=== PATIENT | female | born 1935 | race Caucasian/White ===

== ENCOUNTER 2020-01-04 12:47 | Inpatient (IN) | payer OTHER, MEDICARE ==
[~2020-01-04] VITALS: Ht 160 cm; Wt 86.6 kg
--- NOTE | ~2020-01-04 | EMS ---
[place] [address] EMS Patient Care Report Name: DERREK EDUARDO Room #: PRE M.R.#: [id number] Admission: Attend Phys: Discharge: Date of : 37 Report #: [id number] THIS REPORT FOR: //name// Report Transmitted: 01/04/2020 12:31 EMS Care Summary [place], [place]/[facility] Incident [id number] @ 01/04/2020 12:02 Incident Location [facility] 20 Patient DERREK EDUARDO Female, 84 Years 1935 Patient Address [address] [place] [address] 20 [place] [address] Patient History Diabetes,Hypertension (HTN),Neuropathy,Glaucoma, Patient Allergies Sulfa, Patient Medications Lasix, Gabapentin, Aldactone, Humalog, Hydrochlorothiazide (Hctz), Timolol, Doxycycline, Amlodipine, Lantus, Chief Complaint Blisters/ulcers of lower legs Disposition Transported No Lights/[place] Dispatch Reason Sick Person Transported To [facility] Narrative Arrived to find the patient seated in a wheelchair in her room of the [facility] gcs15. Patient needed transport to a hospital [place] [address] EMS Patient Care Report Name: DERREK EDUARDO Room #: [facility] Reed.#: [id number] Admission: Attend Phys: Discharge: Date of : 37 Report #: [id number] wounds to the calf area. Patient developed blisters approximately a week prior after physical therapy with ankle weights. Blisters developed in the location of the weights, the blisters popped and developed what was described as a black area. Patient had a history of HTN and stated her BP was higher than normal for her. Patient said she takes her medications as prescribed. Patient denied any pain or discomfort in her lower legs. Patient denied any chest pain, n/v, or SOA. Patient stated she had bumped her right arm between her bed and wheelchair when the SNF moved her earlier that morning. Patient was AO4, patient was lifted from the wheelchair to the cot. No DCAPBTLS noted on right arm. Patient was transported and transferred to receiving facility without incident. Initial Vitals @12:31P: 98,R: 16,BP: 166/88,Pain: 0/10,GCS: 15,SpO2: 100,Revised Trauma: 12, @12:28P: 97,R: 16,BP: 168/60,Pain: 0/10,GCS: 15,CO: 0,SpO2: 99,Revised Trauma: 12, Assessments @12:16MENTAL:No Abnormalities,SKIN:No Abnormalities,HEENT:Head/Face: No Abnormalities,Eyes: No Abnormalities,Neck/Airway: No Abnormalities,LUNG SOUNDS:General: No Abnormalities,Left Upper: No Abnormalities,Right Upper: No Abnormalities,Left Lower: No Abnormalities,Right Lower: No Abnormalities,ABDOMEN:General: No Abnormalities,Left Upper: No Abnormalities,Right Upper: No Abnormalities,Left Lower: No Abnormalities,Right Lower: No Abnormalities,PELVIS//GI:No Abnormalities,EXTREMITIES:Left Leg: Other,Right Leg: Other,Left Arm: No Abnormalities,Right Arm: No Abnormalities,PULSE:Radial: 2+ Normal,NEURO:No Abnormalities, Impression Extremity Pain Procedures @12:31ALS AssessmentResponse: UnchangedSucceeded Timeline 12:00,Call Received 12:00,Dispatch Notified 12:02,Dispatched 12:03,En Route 12:10,On Scene 12:15,At Patient 12:28,BP: 168/60 M,PULSE: 97,RR: 16 R,SPO2: 99 Ox,ETCO2: ,BG: ,PAIN: 0,GCS: 15, 12:31,BP: 166/88 M,PULSE: 98,RR: 16 R,SPO2: 100 Ox,ETCO2: ,BG: ,PAIN: 0,GCS: 15, 12:31,ALS Assessment,Response: UnchangedSucceeded, 12:41,Depart Scene [address] [address] EMS Patient Care Report Name: DERREK EDUARDO Room #: PRE M.R.#: [id number] Admission: Attend Phys: Discharge: Date of : 37 Report #: [id number] 12:41,At Destination 13:13,Call Closed Disclaimer v1.1 Copyright 2020 [employer] This EMS Care Summary contains data elements from the applicable legal record (which may be displayed differently). It is designed to provide pertinent information for the following purposes: continuity of care, clinical quality, and state data reporting. The complete legal record is available to ED staff and administrators of the receiving hospital in [facility]'s Patient Tracker. All data is provided "as is."
[2020-01-04 12:51] VITALS: BP 170/70
[2020-01-04 13:25] LABS: BASOPHILS 0.9 % (0.0-2.0); EOSINOPHILS 1.5 % (0.0-3.0); HEMATOCRIT 38.3 % (37.0-47.0); HEMOGLOBIN 13.1 gm/dL (12.0-15.0); LYMPHOCYTES 17.4 % (24.0-44.0); MCH 31.5 pg (26.0-34.0); MCHC 34.1 g/dL (28.0-37.0); MCV 92.3 fL (80.0-100.0); MONOCYTES 9.1 % (1.0-8.0); PLATELET COUNT 424 thou/uL (150-400); POLYS 71.1 % (36.0-66.0); RBC 4.15 mil/uL (4.20-5.00); RDW 13.7 % (10.5-14.5); WBC 14.1 thou/uL (4.0-11.0)
[2020-01-04 13:53] LABS: CALCIUM 9.3 mg/dL (8.5-10.1); CREATININE 0.9 mg/dL (0.6-1.0)
[2020-01-04 14:17] VITALS: BP 170/70
[2020-01-04] MEDS ORDERED: NEURONTIN 300300 M1 PO (14:42)
[2020-01-04] MEDS ORDERED: VITAMIN C500 M2 PO (14:44)
[2020-01-04] MEDS ORDERED: NORVASC5 M1 PO (14:44)
[2020-01-04] MEDS ORDERED: ASA81BEC PO (14:44)
[2020-01-04] MEDS ORDERED: SUPER THERAVIT1 EACH PO (14:44)
[2020-01-04] MEDS ORDERED: HYDROCHLOROTH12.5 M1 PO (14:45)
[2020-01-04] MEDS ORDERED: LASIX 40 MG TAB40 MG PO (14:45)
[2020-01-04] MEDS ORDERED: LANTUS SOL100 UNIT/1 SUBQ (14:46)
[2020-01-04] MEDS ORDERED: DOXYCYCLINE 10100 M2 PO (14:46)
[2020-01-04] MEDS ORDERED: HUMALOG100 UNIT/2 SUBQ (14:47)
[2020-01-04 16:14] VITALS: BP 144/61
[2020-01-04 17:48] VITALS: BP 147/55
[2020-01-04 19:46] VITALS: BP 151/68
[2020-01-05 03:56] VITALS: BP 149/69
[2020-01-05 07:16] VITALS: BP 136/57
[2020-01-05 19:27] VITALS: BP 140/48
[2020-01-06] VITALS (11 sets, daily range): BP systolic 113–152; BP diastolic 44–89
[2020-01-07] VITALS (7 sets, daily range): BP systolic 123–148; BP diastolic 55–80
[2020-01-08] VITALS (7 sets, daily range): BP systolic 122–143; BP diastolic 53–66
[2020-01-08 03:43] LABS: HEMATOCRIT 32.9 % (37.0-47.0); HEMOGLOBIN 11.1 gm/dL (12.0-15.0); MCH 32.1 pg (26.0-34.0); MCHC 33.9 g/dL (28.0-37.0); MCV 94.6 fL (80.0-100.0); RBC 3.48 mil/uL (4.20-5.00)
[2020-01-08 03:49] LABS: CALCIUM 8.4 mg/dL (8.5-10.1); CREATININE 0.6 mg/dL (0.6-1.0); POTASSIUM 3.6 mmol/L (3.5-5.1)
[2020-01-09 05:04] VITALS: BP 163/70
[2020-01-09 07:30] VITALS: BP 144/62
[2020-01-09 07:36] VITALS: BP 101/44
[2020-01-09 20:46] VITALS: BP 152/66
[2020-01-09 21:00] VITALS: BP 123/60
[2020-01-10] VITALS (13 sets, daily range): BP systolic 118–162; BP diastolic 58–78
[2020-01-11] VITALS (8 sets, daily range): BP systolic 130–143; BP diastolic 51–74
[2020-01-11 05:48] LABS: HEMATOCRIT 33.5 % (37.0-47.0); HEMOGLOBIN 11.2 gm/dL (12.0-15.0); MCH 31.8 pg (26.0-34.0); MCHC 33.6 g/dL (28.0-37.0); MCV 94.7 fL (80.0-100.0); RBC 3.53 mil/uL (4.20-5.00); RDW 14.1 % (10.5-14.5); WBC 8.7 thou/uL (4.0-11.0)
[2020-01-11 06:11] LABS: CALCIUM 8.7 mg/dL (8.5-10.1); CREATININE 0.6 mg/dL (0.6-1.0); POTASSIUM 3.9 mmol/L (3.5-5.1)
--- NOTE | 2020-01-11 12:06 | HC ---
[facility] [place] [address] CONSULTATION Name: DERREK EDUARDO Room #: 203-P ADM IN M.R.#: [id number] Admission: 01/04/20 Attend Phys: Elliot Forde MD Discharge: Date of : 37 Report #: [id number] THIS REPORT FOR: cc: FAM - Family physician unknown FAM - Family physician unknown Tony Umanzor MD ~ CC: ERNESTO unknown Elliot Forde DATE OF SERVICE: 01/05/2020 CHIEF COMPLAINT: Bilateral lower extremity ulcerations. HISTORY OF PRESENT ILLNESS: This is an 84-year-old female patient admitted to the hospital from [facility]. She has had increased confusion and then has developed swelling and ulceration and blistering to her lower legs. She is complaining of pain in her posterior calf and left heel and I have been asked to see her with regard to wound care. PAST MEDICAL HISTORY: Prior history of MRSA cellulitis, previous pressure ulceration to the left buttock, history of urinary tract infection, hypertension, diabetes mellitus, colitis, glaucoma and hearing loss. SOCIAL HISTORY: She has a history of past alcohol use. Negative for tobacco or drug use. FAMILY HISTORY: Noncontributory. MEDICATIONS: Include Neurontin, Norvasc, aspirin, vitamin C, Lasix, Lantus and Humalog. ALLERGIES: SULFA. REVIEW OF SYSTEMS: CONSTITUTIONAL: The patient denies fever, chills or weight loss. NEUROLOGICAL: The patient denies focal weakness, numbness or tingling. EYES: The patient denies visual changes, redness, or drainage. ENT: The patient denies earache, nasal drainage, sore throat. CARDIOVASCULAR: The patient denies chest pain, palpitation or diaphoresis. PULMONARY: The patient denies cough or shortness of breath. GASTROINTESTINAL: The patient denies nausea, vomiting, diarrhea or abdominal pain. ORTHOPEDIC: The patient notes pain, swelling, drainage on both lower legs posteriorly and involving the left heel times at least 1-2 weeks. Other systems in a 14-point review of systems are negative. [address] [address] CONSULTATION Name: DERREK EDUARDO Room #: 203-P [facility] IN M.R.#: [id number] Admission: 01/04/20 Attend Phys: Elliot Forde MD Discharge: Date of : 37 Report #: [id number] PHYSICAL EXAMINATION: VITAL SIGNS: At this time include temperature 36.4, pulse 75, respiratory rate 18, blood pressure 147/55. GENERAL: This is a chronically ill-appearing female patient who appears to be in no obvious distress. HEENT: Head normocephalic. Nose and throat clear. NECK: Supple. LUNGS: Clear. ABDOMEN: Soft. Bowel sounds present. EXTREMITIES: Lower extremities demonstrate ulcerations with moist eschar on the posterior aspects of the right medial calf area as well as the left posterior calf and involving the left heel. There is odor and drainage. Distal pulses are not easily palpable however. LABORATORY STUDIES: Sodium 136, potassium 3.0, chloride 95, CO2 of 32, BUN 23, creatinine 0.9, glucose 250, white blood cell count 14.1, hemoglobin 13.1. CLINICAL IMPRESSION: 1. Unstable pressure ulcer of the right calf. 2. Unstable pressure ulcers to the left calf and posterior heel. 3. Lymphedema, bilateral lower extremities. 4. Peripheral vascular disease by clinical exam. RECOMMENDATIONS: At this point in time, we will start with topical gentamicin, Xeroform and lightly applied Kerlix. We will need to check arterial Dopplers. We will consider debridement if she has adequate flow for healing. Otherwise, pursue additional revascularization. She will need aggressive nutritional support and continuation of current medications. All questions have been answered. I appreciate being asked to see her in consultation. We will continue to follow her here in the hospital. <ELECTRONICALLY SIGNED> By: Tony Umanzor MD 01/11/20 1206 1744 1821 Tony Umanzor MD /nt
[2020-01-11] MEDS ORDERED: VANCOMYCIN750 MG/151 IV (12:35)
[2020-01-11] MEDS ORDERED: CLOPIDOGREL75 MG PO (12:36)
--- NOTE | 2020-01-11 14:46 | HC ---
[facility] [place] [address] CONSULTATION Name: DERREK EDUARDO Room #: 203-P ADM IN M.R.#: [id number] Admission: 01/04/20 Attend Phys: Elliot Fored MD Discharge: Date of : 37 Report #: [id number] THIS REPORT FOR: cc: ERNESTO - Family physician unknown ERNESTO - Family physician unknown Indio Boston DPM ~ CC: ERNESTO unknown Elliot Forde DATE OF SERVICE: 01/07/2020 ADMISSION DIAGNOSIS: Bilateral lower extremity wounds with cellulitis and PAD. HISTORY OF PRESENT ILLNESS: An 84-year-old female admitted for worsening cellulitis and nonhealing ulcerations to both lower extremities, the left heel being the worse. She has type 2 diabetes mellitus with peripheral arterial disease. She underwent aortogram with bilateral arterial runoff angiogram with interventional atherectomy, angioplasty and stent placement by Dr. Joni Hernandez. She is scheduled for the right endovascular procedure early next week. She has bilateral lower leg and heel wounds with the left heel wound being the largest. Swab cultures grew Enterococcus faecalis, Staph aureus and Aerococcus urinae. Blood cultures were negative x 2. She is on parenteral levofloxacin and topical gentamicin to her wounds. She has profound diabetic sensory peripheral neuropathy and denies pain to either extremity. She has good appetite, denies fevers, chills or malaise. There are no new labs for review. PHYSICAL EXAMINATION: Dry eschar to the left posterior heel that measures roughly 3 cm diameter with no underlying fluctuance, crepitation, drainage or pain. The eschar is firmly adhered with no peripheral inflammation. The right posterolateral leg has some superficial eschar as well. The right posterior heel has a small eschar roughly 1 cm in diameter, which is stable without inflammation. She has wounds to the right lateral calf, which are mostly eschared with some fibrous slough. Both legs and feet are warm with no pallor or cyanosis noted. I could faintly feel a dorsalis pedis and posterior tibial pulse to the left lower extremity, I could not to the right. IMPRESSION: Bilateral lower extremity wounds with cellulitis, type 2 diabetes mellitus with peripheral arterial disease, status post endovascular intervention to left lower extremity. PLAN: I do not recommend debridement to any of the wounds since the eschars are stable with no underlying fluctuance or signs of liquefaction. In light of her PAD, I think it is best to continue with topical wound care and offloading. She is scheduled for right lower extremity angiogram on Thursday. I will discuss with the wound nurse and follow her during her hospitalization. I do not [address] [address] CONSULTATION Name: DERREK EDUARDO Room #: 203-P [facility] IN M.R.#: [id number] Admission: 01/04/20 Attend Phys: Elliot Forde MD Discharge: Date of : 37 Report #: [id number] foresee any future debridement needed unless eschars become loose and unstable with underlying necrosis. <ELECTRONICALLY SIGNED> By: Indio Boston DPM 01/11/20 1446 1333 1413 Indio Boston DPM /nt
[2020-01-12 03:38] VITALS: BP 156/69
[2020-01-12 08:00] VITALS: BP 160/81
[2020-01-12 08:33] VITALS: BP 160/81
== END 2020-01-12 12:18 | DRG 270 ==
LOC: ER 12:47 → 4S 16:17 → 2N 01-06 12:09
PROVIDERS: Nurse Practitioner Family; ADMIT Internal Medicine
DX: E11.51 Type 2 diabetes mellitus with diabetic peripheral angiopathy without gangrene (principal); L89.313 Pressure ulcer of right buttock, stage 3; L03.116 Cellulitis of left lower limb; L03.115 Cellulitis of right lower limb; L89.899 Pressure ulcer of other site, unspecified stage; E11.40 Type 2 diabetes mellitus with diabetic neuropathy, unspecified; L89.620 Pressure ulcer of left heel, unstageable; I87.2 Venous insufficiency (chronic) (peripheral); F10.10 Alcohol abuse, uncomplicated; B95.62 Methicillin resistant Staphylococcus aureus infection as the cause of diseases classified elsewhere; Z88.2 Allergy status to sulfonamides; Z86.14 Personal history of Methicillin resistant Staphylococcus aureus infection; Z79.82 Long term (current) use of aspirin; Z79.899 Other long term (current) drug therapy
CPT/HCPCS: 10081; 10194; 10195; 27000

== ENCOUNTER → 2020-03-27 | Outpatient (CLI) | payer OTHER, MEDICARE ==
[~2020-03-27] MED LIST: ASA81BEC PO; CLOPIDOGREL75 MG PO; DOXYCYCLINE 10100 M2 PO; HUMALOG100 UNIT/2 SUBQ; HYDROCHLOROTH12.5 M1 PO; LANTUS SOL100 UNIT/1 SUBQ; LASIX 40 MG TAB40 MG PO; NEURONTIN 300300 M1 PO; NORVASC5 M1 PO; SUPER THERAVIT1 EACH PO; VANCOMYCIN750 MG/151 IV; VITAMIN C500 M2 PO
== END ==
LOC: HYPER 10:03
PROVIDERS: ATTEND Specialist
DX: E11.622 Type 2 diabetes mellitus with other skin ulcer (principal); I87.333 Chronic venous hypertension (idiopathic) with ulcer and inflammation of bilateral lower extremity; L89.893 Pressure ulcer of other site, stage 3; I70.242 Atherosclerosis of native arteries of left leg with ulceration of calf; L97.222 Non-pressure chronic ulcer of left calf with fat layer exposed; I70.232 Atherosclerosis of native arteries of right leg with ulceration of calf; L97.212 Non-pressure chronic ulcer of right calf with fat layer exposed; E11.621 Type 2 diabetes mellitus with foot ulcer; I70.244 Atherosclerosis of native arteries of left leg with ulceration of heel and midfoot; L89.620 Pressure ulcer of left heel, unstageable; L97.422 Non-pressure chronic ulcer of left heel and midfoot with fat layer exposed; L97.421 Non-pressure chronic ulcer of left heel and midfoot limited to breakdown of skin; I70.234 Atherosclerosis of native arteries of right leg with ulceration of heel and midfoot; L89.610 Pressure ulcer of right heel, unstageable; L97.511 Non-pressure chronic ulcer of other part of right foot limited to breakdown of skin; I70.235 Atherosclerosis of native arteries of right leg with ulceration of other part of foot; I70.245 Atherosclerosis of native arteries of left leg with ulceration of other part of foot; L97.521 Non-pressure chronic ulcer of other part of left foot limited to breakdown of skin; E11.51 Type 2 diabetes mellitus with diabetic peripheral angiopathy without gangrene; E11.42 Type 2 diabetes mellitus with diabetic polyneuropathy; R54 Age-related physical debility; R26.89 Other abnormalities of gait and mobility; R26.2 Difficulty in walking, not elsewhere classified; E11.36 Type 2 diabetes mellitus with diabetic cataract; E11.39 Type 2 diabetes mellitus with other diabetic ophthalmic complication; H42 Glaucoma in diseases classified elsewhere; E78.5 Hyperlipidemia, unspecified; Z79.01 Long term (current) use of anticoagulants; Z79.4 Long term (current) use of insulin; Z79.82 Long term (current) use of aspirin

== ENCOUNTER → 2020-04-10 | Outpatient (CLI) | payer OTHER, MEDICARE | LOC: SJCVCIMAG 10:53 | PROVIDERS: ATTEND Nuclear Medicine Nuclear Cardiology | DX: I65.23 Occlusion and stenosis of bilateral carotid arteries (principal); I70.203 Unspecified atherosclerosis of native arteries of extremities, bilateral legs; I10 Essential (primary) hypertension; E11.9 Type 2 diabetes mellitus without complications; Z79.899 Other long term (current) drug therapy ==

== ENCOUNTER → 2020-04-17 | Outpatient (CLI) | payer OTHER, MEDICARE | LOC: HYPER 09:48 | PROVIDERS: ATTEND Specialist | DX: E11.622 Type 2 diabetes mellitus with other skin ulcer (principal); I87.333 Chronic venous hypertension (idiopathic) with ulcer and inflammation of bilateral lower extremity; L89.893 Pressure ulcer of other site, stage 3; I70.232 Atherosclerosis of native arteries of right leg with ulceration of calf; L97.212 Non-pressure chronic ulcer of right calf with fat layer exposed; I70.242 Atherosclerosis of native arteries of left leg with ulceration of calf; L97.222 Non-pressure chronic ulcer of left calf with fat layer exposed; E11.621 Type 2 diabetes mellitus with foot ulcer; I70.234 Atherosclerosis of native arteries of right leg with ulceration of heel and midfoot; L89.610 Pressure ulcer of right heel, unstageable; L97.411 Non-pressure chronic ulcer of right heel and midfoot limited to breakdown of skin; I70.244 Atherosclerosis of native arteries of left leg with ulceration of heel and midfoot; L89.620 Pressure ulcer of left heel, unstageable; L97.421 Non-pressure chronic ulcer of left heel and midfoot limited to breakdown of skin; I70.245 Atherosclerosis of native arteries of left leg with ulceration of other part of foot; L97.521 Non-pressure chronic ulcer of other part of left foot limited to breakdown of skin; L97.511 Non-pressure chronic ulcer of other part of right foot limited to breakdown of skin; I70.235 Atherosclerosis of native arteries of right leg with ulceration of other part of foot; E11.51 Type 2 diabetes mellitus with diabetic peripheral angiopathy without gangrene; E11.42 Type 2 diabetes mellitus with diabetic polyneuropathy; E11.36 Type 2 diabetes mellitus with diabetic cataract; R54 Age-related physical debility; R26.89 Other abnormalities of gait and mobility; R26.2 Difficulty in walking, not elsewhere classified; E11.39 Type 2 diabetes mellitus with other diabetic ophthalmic complication; H42 Glaucoma in diseases classified elsewhere; E78.5 Hyperlipidemia, unspecified; Z79.4 Long term (current) use of insulin; Z79.01 Long term (current) use of anticoagulants ==

== ENCOUNTER → 2020-04-20 | Outpatient (CLI) | payer OTHER, MEDICARE | LOC: HYPER 08:50 | PROVIDERS: ATTEND Emergency Medicine Emergency Medical Services | DX: I87.333 Chronic venous hypertension (idiopathic) with ulcer and inflammation of bilateral lower extremity (principal); E11.622 Type 2 diabetes mellitus with other skin ulcer; L89.893 Pressure ulcer of other site, stage 3; I70.242 Atherosclerosis of native arteries of left leg with ulceration of calf; L97.212 Non-pressure chronic ulcer of right calf with fat layer exposed; I70.232 Atherosclerosis of native arteries of right leg with ulceration of calf; L97.222 Non-pressure chronic ulcer of left calf with fat layer exposed; E11.621 Type 2 diabetes mellitus with foot ulcer; I70.234 Atherosclerosis of native arteries of right leg with ulceration of heel and midfoot; L89.610 Pressure ulcer of right heel, unstageable; L97.411 Non-pressure chronic ulcer of right heel and midfoot limited to breakdown of skin; I70.244 Atherosclerosis of native arteries of left leg with ulceration of heel and midfoot; L89.620 Pressure ulcer of left heel, unstageable; I70.245 Atherosclerosis of native arteries of left leg with ulceration of other part of foot; L97.521 Non-pressure chronic ulcer of other part of left foot limited to breakdown of skin; I70.235 Atherosclerosis of native arteries of right leg with ulceration of other part of foot; L97.511 Non-pressure chronic ulcer of other part of right foot limited to breakdown of skin; E11.42 Type 2 diabetes mellitus with diabetic polyneuropathy; E11.51 Type 2 diabetes mellitus with diabetic peripheral angiopathy without gangrene; R54 Age-related physical debility; R26.2 Difficulty in walking, not elsewhere classified; L84 Corns and callosities; E11.36 Type 2 diabetes mellitus with diabetic cataract; E11.39 Type 2 diabetes mellitus with other diabetic ophthalmic complication; H42 Glaucoma in diseases classified elsewhere; E78.5 Hyperlipidemia, unspecified; Z79.4 Long term (current) use of insulin; Z79.01 Long term (current) use of anticoagulants; Z79.82 Long term (current) use of aspirin ==

== ENCOUNTER → 2020-04-25 | Outpatient (CLI) | payer OTHER, MEDICARE | LOC: HYPER 10:08 | PROVIDERS: ATTEND Emergency Medicine Emergency Medical Services | DX: I87.333 Chronic venous hypertension (idiopathic) with ulcer and inflammation of bilateral lower extremity (principal); E11.622 Type 2 diabetes mellitus with other skin ulcer; L89.893 Pressure ulcer of other site, stage 3; I70.242 Atherosclerosis of native arteries of left leg with ulceration of calf; L97.222 Non-pressure chronic ulcer of left calf with fat layer exposed; I70.212 Atherosclerosis of native arteries of extremities with intermittent claudication, left leg; I70.232 Atherosclerosis of native arteries of right leg with ulceration of calf; E11.621 Type 2 diabetes mellitus with foot ulcer; I70.234 Atherosclerosis of native arteries of right leg with ulceration of heel and midfoot; L89.610 Pressure ulcer of right heel, unstageable; L97.411 Non-pressure chronic ulcer of right heel and midfoot limited to breakdown of skin; I70.244 Atherosclerosis of native arteries of left leg with ulceration of heel and midfoot; L89.620 Pressure ulcer of left heel, unstageable; I70.245 Atherosclerosis of native arteries of left leg with ulceration of other part of foot; L97.521 Non-pressure chronic ulcer of other part of left foot limited to breakdown of skin; I70.235 Atherosclerosis of native arteries of right leg with ulceration of other part of foot; L97.511 Non-pressure chronic ulcer of other part of right foot limited to breakdown of skin; E11.42 Type 2 diabetes mellitus with diabetic polyneuropathy; E11.51 Type 2 diabetes mellitus with diabetic peripheral angiopathy without gangrene; R54 Age-related physical debility; R26.2 Difficulty in walking, not elsewhere classified; L84 Corns and callosities; E11.36 Type 2 diabetes mellitus with diabetic cataract; E11.39 Type 2 diabetes mellitus with other diabetic ophthalmic complication; H42 Glaucoma in diseases classified elsewhere; E78.5 Hyperlipidemia, unspecified; Z79.4 Long term (current) use of insulin; Z79.01 Long term (current) use of anticoagulants; Z79.82 Long term (current) use of aspirin ==

== ENCOUNTER → 2020-05-09 | Outpatient (CLI) | payer OTHER, MEDICARE | LOC: HYPER 09:50 | PROVIDERS: ATTEND Emergency Medicine | DX: E11.622 Type 2 diabetes mellitus with other skin ulcer (principal); I87.333 Chronic venous hypertension (idiopathic) with ulcer and inflammation of bilateral lower extremity; L89.893 Pressure ulcer of other site, stage 3; I70.242 Atherosclerosis of native arteries of left leg with ulceration of calf; L97.222 Non-pressure chronic ulcer of left calf with fat layer exposed; I70.232 Atherosclerosis of native arteries of right leg with ulceration of calf; L97.211 Non-pressure chronic ulcer of right calf limited to breakdown of skin; E11.621 Type 2 diabetes mellitus with foot ulcer; I70.244 Atherosclerosis of native arteries of left leg with ulceration of heel and midfoot; L97.422 Non-pressure chronic ulcer of left heel and midfoot with fat layer exposed; L89.620 Pressure ulcer of left heel, unstageable; I70.234 Atherosclerosis of native arteries of right leg with ulceration of heel and midfoot; L89.610 Pressure ulcer of right heel, unstageable; L97.412 Non-pressure chronic ulcer of right heel and midfoot with fat layer exposed; L84 Corns and callosities; E11.36 Type 2 diabetes mellitus with diabetic cataract; E11.39 Type 2 diabetes mellitus with other diabetic ophthalmic complication; H40.9 Unspecified glaucoma; E11.51 Type 2 diabetes mellitus with diabetic peripheral angiopathy without gangrene; E78.5 Hyperlipidemia, unspecified; E66.9 Obesity, unspecified; G90.09 Other idiopathic peripheral autonomic neuropathy; R54 Age-related physical debility; R26.89 Other abnormalities of gait and mobility; R26.2 Difficulty in walking, not elsewhere classified; F41.9 Anxiety disorder, unspecified; Z79.01 Long term (current) use of anticoagulants; Z79.4 Long term (current) use of insulin; Z68.34 Body mass index [BMI] 34.0-34.9, adult ==

== ENCOUNTER → 2020-05-23 | Outpatient (CLI) | payer OTHER, MEDICARE | LOC: HYPER 09:57 | PROVIDERS: ATTEND Emergency Medicine | DX: E11.622 Type 2 diabetes mellitus with other skin ulcer (principal); I87.333 Chronic venous hypertension (idiopathic) with ulcer and inflammation of bilateral lower extremity; L89.893 Pressure ulcer of other site, stage 3; I70.242 Atherosclerosis of native arteries of left leg with ulceration of calf; L97.222 Non-pressure chronic ulcer of left calf with fat layer exposed; I70.232 Atherosclerosis of native arteries of right leg with ulceration of calf; L97.212 Non-pressure chronic ulcer of right calf with fat layer exposed; E11.621 Type 2 diabetes mellitus with foot ulcer; I70.244 Atherosclerosis of native arteries of left leg with ulceration of heel and midfoot; L89.623 Pressure ulcer of left heel, stage 3; L97.421 Non-pressure chronic ulcer of left heel and midfoot limited to breakdown of skin; I70.234 Atherosclerosis of native arteries of right leg with ulceration of heel and midfoot; L89.610 Pressure ulcer of right heel, unstageable; L97.412 Non-pressure chronic ulcer of right heel and midfoot with fat layer exposed; E11.51 Type 2 diabetes mellitus with diabetic peripheral angiopathy without gangrene; G90.09 Other idiopathic peripheral autonomic neuropathy; R54 Age-related physical debility; R26.89 Other abnormalities of gait and mobility; R26.2 Difficulty in walking, not elsewhere classified; E11.36 Type 2 diabetes mellitus with diabetic cataract; E11.39 Type 2 diabetes mellitus with other diabetic ophthalmic complication; H40.9 Unspecified glaucoma; E66.01 Morbid (severe) obesity due to excess calories; E78.5 Hyperlipidemia, unspecified; F41.9 Anxiety disorder, unspecified; Z79.4 Long term (current) use of insulin; Z79.01 Long term (current) use of anticoagulants; Z68.34 Body mass index [BMI] 34.0-34.9, adult ==

== ENCOUNTER → 2020-06-01 | Outpatient (CLI) | payer OTHER, MEDICARE | LOC: HYPER 09:53 | PROVIDERS: ATTEND Emergency Medicine Emergency Medical Services | DX: I87.333 Chronic venous hypertension (idiopathic) with ulcer and inflammation of bilateral lower extremity (principal); E11.622 Type 2 diabetes mellitus with other skin ulcer; I70.242 Atherosclerosis of native arteries of left leg with ulceration of calf; L89.893 Pressure ulcer of other site, stage 3; L97.222 Non-pressure chronic ulcer of left calf with fat layer exposed; I70.232 Atherosclerosis of native arteries of right leg with ulceration of calf; L97.211 Non-pressure chronic ulcer of right calf limited to breakdown of skin; E11.621 Type 2 diabetes mellitus with foot ulcer; I70.244 Atherosclerosis of native arteries of left leg with ulceration of heel and midfoot; L89.623 Pressure ulcer of left heel, stage 3; L97.421 Non-pressure chronic ulcer of left heel and midfoot limited to breakdown of skin; I70.234 Atherosclerosis of native arteries of right leg with ulceration of heel and midfoot; L89.610 Pressure ulcer of right heel, unstageable; L97.411 Non-pressure chronic ulcer of right heel and midfoot limited to breakdown of skin; G90.09 Other idiopathic peripheral autonomic neuropathy; R54 Age-related physical debility; R26.89 Other abnormalities of gait and mobility; R26.2 Difficulty in walking, not elsewhere classified; E11.36 Type 2 diabetes mellitus with diabetic cataract; E11.39 Type 2 diabetes mellitus with other diabetic ophthalmic complication; H42 Glaucoma in diseases classified elsewhere; E78.5 Hyperlipidemia, unspecified; F41.9 Anxiety disorder, unspecified; Z79.01 Long term (current) use of anticoagulants; Z79.4 Long term (current) use of insulin; Z79.82 Long term (current) use of aspirin ==

== ENCOUNTER → 2020-06-11 | Outpatient (CLI) | payer OTHER, MEDICARE | LOC: HYPER 10:15 | PROVIDERS: ATTEND Emergency Medicine Emergency Medical Services | DX: E11.622 Type 2 diabetes mellitus with other skin ulcer (principal); I87.333 Chronic venous hypertension (idiopathic) with ulcer and inflammation of bilateral lower extremity; L89.894 Pressure ulcer of other site, stage 4; I70.242 Atherosclerosis of native arteries of left leg with ulceration of calf; L97.225 Non-pressure chronic ulcer of left calf with muscle involvement without evidence of necrosis; I70.232 Atherosclerosis of native arteries of right leg with ulceration of calf; L97.212 Non-pressure chronic ulcer of right calf with fat layer exposed; E11.621 Type 2 diabetes mellitus with foot ulcer; I70.244 Atherosclerosis of native arteries of left leg with ulceration of heel and midfoot; L89.623 Pressure ulcer of left heel, stage 3; L97.421 Non-pressure chronic ulcer of left heel and midfoot limited to breakdown of skin; I70.234 Atherosclerosis of native arteries of right leg with ulceration of heel and midfoot; L89.613 Pressure ulcer of right heel, stage 3; L97.411 Non-pressure chronic ulcer of right heel and midfoot limited to breakdown of skin; E11.36 Type 2 diabetes mellitus with diabetic cataract; E11.39 Type 2 diabetes mellitus with other diabetic ophthalmic complication; H40.9 Unspecified glaucoma; E78.5 Hyperlipidemia, unspecified; E66.01 Morbid (severe) obesity due to excess calories; G90.09 Other idiopathic peripheral autonomic neuropathy; R54 Age-related physical debility; R26.89 Other abnormalities of gait and mobility; R26.2 Difficulty in walking, not elsewhere classified; F41.9 Anxiety disorder, unspecified; Z79.01 Long term (current) use of anticoagulants; Z79.4 Long term (current) use of insulin; Z68.34 Body mass index [BMI] 34.0-34.9, adult ==

== ENCOUNTER → 2020-06-27 | Outpatient (CLI) | payer OTHER, MEDICARE | LOC: HYPER 10:17 | PROVIDERS: ATTEND Emergency Medicine | DX: E11.622 Type 2 diabetes mellitus with other skin ulcer (principal); I87.333 Chronic venous hypertension (idiopathic) with ulcer and inflammation of bilateral lower extremity; L89.894 Pressure ulcer of other site, stage 4; I70.242 Atherosclerosis of native arteries of left leg with ulceration of calf; L97.221 Non-pressure chronic ulcer of left calf limited to breakdown of skin; I70.232 Atherosclerosis of native arteries of right leg with ulceration of calf; L97.212 Non-pressure chronic ulcer of right calf with fat layer exposed; I70.244 Atherosclerosis of native arteries of left leg with ulceration of heel and midfoot; L89.623 Pressure ulcer of left heel, stage 3; L97.421 Non-pressure chronic ulcer of left heel and midfoot limited to breakdown of skin; I70.234 Atherosclerosis of native arteries of right leg with ulceration of heel and midfoot; L89.613 Pressure ulcer of right heel, stage 3; L97.411 Non-pressure chronic ulcer of right heel and midfoot limited to breakdown of skin; L84 Corns and callosities; E11.51 Type 2 diabetes mellitus with diabetic peripheral angiopathy without gangrene; E11.36 Type 2 diabetes mellitus with diabetic cataract; E11.39 Type 2 diabetes mellitus with other diabetic ophthalmic complication; H40.9 Unspecified glaucoma; E78.5 Hyperlipidemia, unspecified; E66.01 Morbid (severe) obesity due to excess calories; G90.09 Other idiopathic peripheral autonomic neuropathy; R26.89 Other abnormalities of gait and mobility; R26.2 Difficulty in walking, not elsewhere classified; F41.9 Anxiety disorder, unspecified; Z79.01 Long term (current) use of anticoagulants; Z79.4 Long term (current) use of insulin; Z68.34 Body mass index [BMI] 34.0-34.9, adult ==

== ENCOUNTER → 2020-07-04 | Outpatient (CLI) | payer OTHER, MEDICARE | LOC: HYPER 10:20 | PROVIDERS: ATTEND Emergency Medicine | DX: I87.333 Chronic venous hypertension (idiopathic) with ulcer and inflammation of bilateral lower extremity (principal); L89.894 Pressure ulcer of other site, stage 4; I70.242 Atherosclerosis of native arteries of left leg with ulceration of calf; L97.225 Non-pressure chronic ulcer of left calf with muscle involvement without evidence of necrosis; I70.232 Atherosclerosis of native arteries of right leg with ulceration of calf; L97.212 Non-pressure chronic ulcer of right calf with fat layer exposed; I70.244 Atherosclerosis of native arteries of left leg with ulceration of heel and midfoot; L89.623 Pressure ulcer of left heel, stage 3; L97.421 Non-pressure chronic ulcer of left heel and midfoot limited to breakdown of skin; I70.234 Atherosclerosis of native arteries of right leg with ulceration of heel and midfoot; L89.613 Pressure ulcer of right heel, stage 3; L97.411 Non-pressure chronic ulcer of right heel and midfoot limited to breakdown of skin; L84 Corns and callosities; R26.2 Difficulty in walking, not elsewhere classified; R26.89 Other abnormalities of gait and mobility; R54 Age-related physical debility; G90.09 Other idiopathic peripheral autonomic neuropathy; E11.36 Type 2 diabetes mellitus with diabetic cataract; E11.39 Type 2 diabetes mellitus with other diabetic ophthalmic complication; H40.9 Unspecified glaucoma; E78.5 Hyperlipidemia, unspecified; E66.01 Morbid (severe) obesity due to excess calories; F41.9 Anxiety disorder, unspecified; Z79.01 Long term (current) use of anticoagulants; Z79.4 Long term (current) use of insulin; Z68.34 Body mass index [BMI] 34.0-34.9, adult ==

== ENCOUNTER → 2020-07-11 | Outpatient (CLI) | payer OTHER, MEDICARE | LOC: HYPER 10:17 | PROVIDERS: ATTEND Emergency Medicine | DX: E11.622 Type 2 diabetes mellitus with other skin ulcer (principal); I87.333 Chronic venous hypertension (idiopathic) with ulcer and inflammation of bilateral lower extremity; L89.894 Pressure ulcer of other site, stage 4; I70.242 Atherosclerosis of native arteries of left leg with ulceration of calf; L97.225 Non-pressure chronic ulcer of left calf with muscle involvement without evidence of necrosis; I70.232 Atherosclerosis of native arteries of right leg with ulceration of calf; L97.215 Non-pressure chronic ulcer of right calf with muscle involvement without evidence of necrosis; E11.621 Type 2 diabetes mellitus with foot ulcer; I70.244 Atherosclerosis of native arteries of left leg with ulceration of heel and midfoot; L89.623 Pressure ulcer of left heel, stage 3; L97.421 Non-pressure chronic ulcer of left heel and midfoot limited to breakdown of skin; I70.234 Atherosclerosis of native arteries of right leg with ulceration of heel and midfoot; L89.613 Pressure ulcer of right heel, stage 3; L97.411 Non-pressure chronic ulcer of right heel and midfoot limited to breakdown of skin; L84 Corns and callosities; E66.01 Morbid (severe) obesity due to excess calories; E11.51 Type 2 diabetes mellitus with diabetic peripheral angiopathy without gangrene; E11.36 Type 2 diabetes mellitus with diabetic cataract; E11.39 Type 2 diabetes mellitus with other diabetic ophthalmic complication; H40.9 Unspecified glaucoma; E78.5 Hyperlipidemia, unspecified; G90.09 Other idiopathic peripheral autonomic neuropathy; R54 Age-related physical debility; R26.89 Other abnormalities of gait and mobility; R26.2 Difficulty in walking, not elsewhere classified; F41.9 Anxiety disorder, unspecified; Z68.34 Body mass index [BMI] 34.0-34.9, adult; Z79.4 Long term (current) use of insulin; Z79.01 Long term (current) use of anticoagulants ==

== ENCOUNTER → 2020-07-23 | Outpatient (CLI) | payer OTHER, MEDICARE | LOC: HYPER 10:12 | PROVIDERS: ATTEND Emergency Medicine Emergency Medical Services | DX: I87.333 Chronic venous hypertension (idiopathic) with ulcer and inflammation of bilateral lower extremity (principal); E11.622 Type 2 diabetes mellitus with other skin ulcer; I70.242 Atherosclerosis of native arteries of left leg with ulceration of calf; L89.893 Pressure ulcer of other site, stage 3; L97.225 Non-pressure chronic ulcer of left calf with muscle involvement without evidence of necrosis; I70.232 Atherosclerosis of native arteries of right leg with ulceration of calf; L89.894 Pressure ulcer of other site, stage 4; L97.215 Non-pressure chronic ulcer of right calf with muscle involvement without evidence of necrosis; I70.248 Atherosclerosis of native arteries of left leg with ulceration of other part of lower leg; L97.822 Non-pressure chronic ulcer of other part of left lower leg with fat layer exposed; I70.238 Atherosclerosis of native arteries of right leg with ulceration of other part of lower leg; L97.812 Non-pressure chronic ulcer of other part of right lower leg with fat layer exposed; E11.621 Type 2 diabetes mellitus with foot ulcer; L89.623 Pressure ulcer of left heel, stage 3; L97.421 Non-pressure chronic ulcer of left heel and midfoot limited to breakdown of skin; I70.245 Atherosclerosis of native arteries of left leg with ulceration of other part of foot; L97.521 Non-pressure chronic ulcer of other part of left foot limited to breakdown of skin; I70.235 Atherosclerosis of native arteries of right leg with ulceration of other part of foot; L97.511 Non-pressure chronic ulcer of other part of right foot limited to breakdown of skin; E11.42 Type 2 diabetes mellitus with diabetic polyneuropathy; E11.51 Type 2 diabetes mellitus with diabetic peripheral angiopathy without gangrene; L84 Corns and callosities; R26.89 Other abnormalities of gait and mobility; R26.2 Difficulty in walking, not elsewhere classified; R54 Age-related physical debility; E11.36 Type 2 diabetes mellitus with diabetic cataract; E11.319 Type 2 diabetes mellitus with unspecified diabetic retinopathy without macular edema; H42 Glaucoma in diseases classified elsewhere; E78.5 Hyperlipidemia, unspecified; F41.9 Anxiety disorder, unspecified; Z79.01 Long term (current) use of anticoagulants; Z79.4 Long term (current) use of insulin; Z79.82 Long term (current) use of aspirin; Z97.4 Presence of external hearing-aid ==

== ENCOUNTER → 2020-07-30 | Outpatient (CLI) | payer OTHER, MEDICARE | LOC: HYPER 10:19 | PROVIDERS: ATTEND Emergency Medicine Emergency Medical Services | DX: E11.622 Type 2 diabetes mellitus with other skin ulcer (principal); I87.333 Chronic venous hypertension (idiopathic) with ulcer and inflammation of bilateral lower extremity; L89.894 Pressure ulcer of other site, stage 4; I70.232 Atherosclerosis of native arteries of right leg with ulceration of calf; L97.215 Non-pressure chronic ulcer of right calf with muscle involvement without evidence of necrosis; I70.242 Atherosclerosis of native arteries of left leg with ulceration of calf; L97.225 Non-pressure chronic ulcer of left calf with muscle involvement without evidence of necrosis; I70.234 Atherosclerosis of native arteries of right leg with ulceration of heel and midfoot; L89.613 Pressure ulcer of right heel, stage 3; L97.421 Non-pressure chronic ulcer of left heel and midfoot limited to breakdown of skin; I70.244 Atherosclerosis of native arteries of left leg with ulceration of heel and midfoot; L89.623 Pressure ulcer of left heel, stage 3; L97.411 Non-pressure chronic ulcer of right heel and midfoot limited to breakdown of skin; E11.51 Type 2 diabetes mellitus with diabetic peripheral angiopathy without gangrene; E11.36 Type 2 diabetes mellitus with diabetic cataract; E11.39 Type 2 diabetes mellitus with other diabetic ophthalmic complication; H40.9 Unspecified glaucoma; E78.5 Hyperlipidemia, unspecified; G90.09 Other idiopathic peripheral autonomic neuropathy; R54 Age-related physical debility; R26.89 Other abnormalities of gait and mobility; F41.9 Anxiety disorder, unspecified; Z79.01 Long term (current) use of anticoagulants; Z79.4 Long term (current) use of insulin ==

== ENCOUNTER → 2020-08-06 | Outpatient (CLI) | payer OTHER, MEDICARE | LOC: HYPER 09:00 | PROVIDERS: ATTEND Emergency Medicine Emergency Medical Services | DX: E11.622 Type 2 diabetes mellitus with other skin ulcer (principal); I87.333 Chronic venous hypertension (idiopathic) with ulcer and inflammation of bilateral lower extremity; L89.894 Pressure ulcer of other site, stage 4; L97.222 Non-pressure chronic ulcer of left calf with fat layer exposed; L97.212 Non-pressure chronic ulcer of right calf with fat layer exposed; I70.248 Atherosclerosis of native arteries of left leg with ulceration of other part of lower leg; L97.822 Non-pressure chronic ulcer of other part of left lower leg with fat layer exposed; I70.238 Atherosclerosis of native arteries of right leg with ulceration of other part of lower leg; L97.812 Non-pressure chronic ulcer of other part of right lower leg with fat layer exposed; E11.621 Type 2 diabetes mellitus with foot ulcer; I70.234 Atherosclerosis of native arteries of right leg with ulceration of heel and midfoot; L89.623 Pressure ulcer of left heel, stage 3; L97.421 Non-pressure chronic ulcer of left heel and midfoot limited to breakdown of skin; I70.244 Atherosclerosis of native arteries of left leg with ulceration of heel and midfoot; L89.613 Pressure ulcer of right heel, stage 3; L97.411 Non-pressure chronic ulcer of right heel and midfoot limited to breakdown of skin; R54 Age-related physical debility; R26.89 Other abnormalities of gait and mobility; E11.36 Type 2 diabetes mellitus with diabetic cataract; E11.39 Type 2 diabetes mellitus with other diabetic ophthalmic complication; H40.9 Unspecified glaucoma; E78.5 Hyperlipidemia, unspecified; Z79.01 Long term (current) use of anticoagulants; Z79.4 Long term (current) use of insulin; F41.9 Anxiety disorder, unspecified ==

== ENCOUNTER → 2020-08-17 | Outpatient (CLI) | payer OTHER, MEDICARE | LOC: HYPER 10:19 | PROVIDERS: ATTEND Emergency Medicine | DX: I87.333 Chronic venous hypertension (idiopathic) with ulcer and inflammation of bilateral lower extremity (principal); E11.622 Type 2 diabetes mellitus with other skin ulcer; L89.893 Pressure ulcer of other site, stage 3; L89.894 Pressure ulcer of other site, stage 4; I70.242 Atherosclerosis of native arteries of left leg with ulceration of calf; L97.225 Non-pressure chronic ulcer of left calf with muscle involvement without evidence of necrosis; I70.232 Atherosclerosis of native arteries of right leg with ulceration of calf; L97.215 Non-pressure chronic ulcer of right calf with muscle involvement without evidence of necrosis; I70.248 Atherosclerosis of native arteries of left leg with ulceration of other part of lower leg; L97.822 Non-pressure chronic ulcer of other part of left lower leg with fat layer exposed; I70.238 Atherosclerosis of native arteries of right leg with ulceration of other part of lower leg; L97.812 Non-pressure chronic ulcer of other part of right lower leg with fat layer exposed; E11.621 Type 2 diabetes mellitus with foot ulcer; I70.244 Atherosclerosis of native arteries of left leg with ulceration of heel and midfoot; L89.623 Pressure ulcer of left heel, stage 3; L97.421 Non-pressure chronic ulcer of left heel and midfoot limited to breakdown of skin; I70.234 Atherosclerosis of native arteries of right leg with ulceration of heel and midfoot; L89.613 Pressure ulcer of right heel, stage 3; L97.411 Non-pressure chronic ulcer of right heel and midfoot limited to breakdown of skin; I70.245 Atherosclerosis of native arteries of left leg with ulceration of other part of foot; L97.521 Non-pressure chronic ulcer of other part of left foot limited to breakdown of skin; I70.235 Atherosclerosis of native arteries of right leg with ulceration of other part of foot; L97.511 Non-pressure chronic ulcer of other part of right foot limited to breakdown of skin; E11.43 Type 2 diabetes mellitus with diabetic autonomic (poly)neuropathy; R26.2 Difficulty in walking, not elsewhere classified; R54 Age-related physical debility; R26.89 Other abnormalities of gait and mobility; E11.39 Type 2 diabetes mellitus with other diabetic ophthalmic complication; H42 Glaucoma in diseases classified elsewhere; E11.36 Type 2 diabetes mellitus with diabetic cataract; E78.5 Hyperlipidemia, unspecified; Z79.01 Long term (current) use of anticoagulants; Z79.4 Long term (current) use of insulin; Z79.82 Long term (current) use of aspirin ==

== ENCOUNTER → 2020-08-22 | Outpatient (CLI) | payer OTHER, MEDICARE | LOC: HYPER 08-21 15:01 | PROVIDERS: ATTEND Emergency Medicine | DX: E11.622 Type 2 diabetes mellitus with other skin ulcer (principal); I87.333 Chronic venous hypertension (idiopathic) with ulcer and inflammation of bilateral lower extremity; L89.893 Pressure ulcer of other site, stage 3; L89.894 Pressure ulcer of other site, stage 4; I70.242 Atherosclerosis of native arteries of left leg with ulceration of calf; L97.225 Non-pressure chronic ulcer of left calf with muscle involvement without evidence of necrosis; I70.232 Atherosclerosis of native arteries of right leg with ulceration of calf; L97.215 Non-pressure chronic ulcer of right calf with muscle involvement without evidence of necrosis; E11.621 Type 2 diabetes mellitus with foot ulcer; I70.244 Atherosclerosis of native arteries of left leg with ulceration of heel and midfoot; L89.623 Pressure ulcer of left heel, stage 3; L97.421 Non-pressure chronic ulcer of left heel and midfoot limited to breakdown of skin; I70.234 Atherosclerosis of native arteries of right leg with ulceration of heel and midfoot; L89.613 Pressure ulcer of right heel, stage 3; L97.411 Non-pressure chronic ulcer of right heel and midfoot limited to breakdown of skin; E11.43 Type 2 diabetes mellitus with diabetic autonomic (poly)neuropathy; R26.2 Difficulty in walking, not elsewhere classified; R54 Age-related physical debility; R26.89 Other abnormalities of gait and mobility; E11.51 Type 2 diabetes mellitus with diabetic peripheral angiopathy without gangrene; E11.39 Type 2 diabetes mellitus with other diabetic ophthalmic complication; H46.9 Unspecified optic neuritis; E11.36 Type 2 diabetes mellitus with diabetic cataract; E78.5 Hyperlipidemia, unspecified; G90.09 Other idiopathic peripheral autonomic neuropathy; Z79.01 Long term (current) use of anticoagulants; Z79.4 Long term (current) use of insulin; Z79.82 Long term (current) use of aspirin ==

== ENCOUNTER → 2020-08-31 | Outpatient (CLI) | payer OTHER, MEDICARE | LOC: HYPER 09:57 | PROVIDERS: ATTEND Emergency Medicine Emergency Medical Services | DX: I87.333 Chronic venous hypertension (idiopathic) with ulcer and inflammation of bilateral lower extremity (principal); I70.234 Atherosclerosis of native arteries of right leg with ulceration of heel and midfoot; E11.622 Type 2 diabetes mellitus with other skin ulcer; I70.232 Atherosclerosis of native arteries of right leg with ulceration of calf; L89.894 Pressure ulcer of other site, stage 4; L97.215 Non-pressure chronic ulcer of right calf with muscle involvement without evidence of necrosis; I70.242 Atherosclerosis of native arteries of left leg with ulceration of calf; L97.225 Non-pressure chronic ulcer of left calf with muscle involvement without evidence of necrosis; I70.248 Atherosclerosis of native arteries of left leg with ulceration of other part of lower leg; L97.822 Non-pressure chronic ulcer of other part of left lower leg with fat layer exposed; L97.812 Non-pressure chronic ulcer of other part of right lower leg with fat layer exposed; I70.238 Atherosclerosis of native arteries of right leg with ulceration of other part of lower leg; E11.621 Type 2 diabetes mellitus with foot ulcer; I70.244 Atherosclerosis of native arteries of left leg with ulceration of heel and midfoot; L89.623 Pressure ulcer of left heel, stage 3; L97.421 Non-pressure chronic ulcer of left heel and midfoot limited to breakdown of skin; L89.613 Pressure ulcer of right heel, stage 3; L97.411 Non-pressure chronic ulcer of right heel and midfoot limited to breakdown of skin; E11.43 Type 2 diabetes mellitus with diabetic autonomic (poly)neuropathy; R54 Age-related physical debility; R26.89 Other abnormalities of gait and mobility; R26.2 Difficulty in walking, not elsewhere classified; E11.39 Type 2 diabetes mellitus with other diabetic ophthalmic complication; H42 Glaucoma in diseases classified elsewhere; Z79.01 Long term (current) use of anticoagulants; Z79.4 Long term (current) use of insulin; Z79.82 Long term (current) use of aspirin ==

== ENCOUNTER → 2020-09-21 | Outpatient (CLI) | payer OTHER, MEDICARE | LOC: HYPER 09:49 | PROVIDERS: ATTEND Emergency Medicine Emergency Medical Services | DX: I87.333 Chronic venous hypertension (idiopathic) with ulcer and inflammation of bilateral lower extremity (principal); I70.242 Atherosclerosis of native arteries of left leg with ulceration of calf; L89.894 Pressure ulcer of other site, stage 4; L97.225 Non-pressure chronic ulcer of left calf with muscle involvement without evidence of necrosis; I70.244 Atherosclerosis of native arteries of left leg with ulceration of heel and midfoot; L89.623 Pressure ulcer of left heel, stage 3; L97.421 Non-pressure chronic ulcer of left heel and midfoot limited to breakdown of skin; I70.232 Atherosclerosis of native arteries of right leg with ulceration of calf; L97.215 Non-pressure chronic ulcer of right calf with muscle involvement without evidence of necrosis; E11.621 Type 2 diabetes mellitus with foot ulcer; I70.234 Atherosclerosis of native arteries of right leg with ulceration of heel and midfoot; L89.613 Pressure ulcer of right heel, stage 3; L97.412 Non-pressure chronic ulcer of right heel and midfoot with fat layer exposed; I70.245 Atherosclerosis of native arteries of left leg with ulceration of other part of foot; L97.521 Non-pressure chronic ulcer of other part of left foot limited to breakdown of skin; I70.235 Atherosclerosis of native arteries of right leg with ulceration of other part of foot; L97.511 Non-pressure chronic ulcer of other part of right foot limited to breakdown of skin; E11.622 Type 2 diabetes mellitus with other skin ulcer; I70.238 Atherosclerosis of native arteries of right leg with ulceration of other part of lower leg; L97.812 Non-pressure chronic ulcer of other part of right lower leg with fat layer exposed; I70.248 Atherosclerosis of native arteries of left leg with ulceration of other part of lower leg; L97.822 Non-pressure chronic ulcer of other part of left lower leg with fat layer exposed; E11.43 Type 2 diabetes mellitus with diabetic autonomic (poly)neuropathy; R26.89 Other abnormalities of gait and mobility; R26.2 Difficulty in walking, not elsewhere classified; R54 Age-related physical debility; E11.36 Type 2 diabetes mellitus with diabetic cataract; E11.39 Type 2 diabetes mellitus with other diabetic ophthalmic complication; H42 Glaucoma in diseases classified elsewhere; E78.5 Hyperlipidemia, unspecified; I10 Essential (primary) hypertension; Z79.01 Long term (current) use of anticoagulants; Z79.4 Long term (current) use of insulin; Z79.82 Long term (current) use of aspirin ==

== ENCOUNTER → 2020-09-26 | Outpatient (CLI) | payer OTHER, MEDICARE ==
[~2020-09-26] VITALS: Ht 154.9 cm; Wt 80.7 kg
[~2020-09-26] MED LIST changes: +ACETAMINOPHEN500 MG PO; +BASAGLAR K100 UNIT/1 SUBQ; +TRAMADOL 50 MG50 MG PO
[2020-09-26 07:28] VITALS: BP 139/56
[2020-09-26 07:33] LABS: HEMATOCRIT 34.3 % (37.0-47.0); HEMOGLOBIN 10.6 gm/dL (12.0-15.0); MCH 25.9 pg (26.0-34.0); MCV 83.7 fL (80.0-100.0); RBC 4.09 mil/uL (4.20-5.00); RDW 16.1 % (10.5-14.5); WBC 14.3 thou/uL (4.0-11.0)
[2020-09-26 08:01] LABS: CALCIUM 9.4 mg/dL (8.5-10.1); CREATININE 0.7 mg/dL (0.6-1.0)
[2020-09-26 12:35] VITALS: BP 144/78
[2020-09-26 13:05] VITALS: BP 139/85
[2020-09-26 13:20] VITALS: BP 158/56
[2020-09-26 13:35] VITALS: BP 148/67
[2020-09-26 13:50] VITALS: BP 150/61
--- NOTE | 2020-09-26 14:31 | NUR ---
RLE DSG CHANGED PER WOUND CARE ORDERS PROVIDED BY [facility]. DSG CHANGED PER ORDER. NO DISTRESS NOTED.
== END | disposition home or self-care (01) ==
LOC: CATH 06:48
PROVIDERS: ATTEND Nuclear Medicine Nuclear Cardiology
DX: I70.238 Atherosclerosis of native arteries of right leg with ulceration of other part of lower leg (principal); L97.919 Non-pressure chronic ulcer of unspecified part of right lower leg with unspecified severity; I70.1 Atherosclerosis of renal artery; I10 Essential (primary) hypertension; I25.10 Atherosclerotic heart disease of native coronary artery without angina pectoris; E11.9 Type 2 diabetes mellitus without complications; H40.9 Unspecified glaucoma; E66.9 Obesity, unspecified; Z98.890 Other specified postprocedural states; Z79.899 Other long term (current) drug therapy; Z79.4 Long term (current) use of insulin; Z88.2 Allergy status to sulfonamides

== ENCOUNTER → 2020-10-05 | Outpatient (CLI) | payer OTHER, MEDICARE | LOC: HYPER 09:44 | PROVIDERS: ATTEND Emergency Medicine Emergency Medical Services | DX: I87.333 Chronic venous hypertension (idiopathic) with ulcer and inflammation of bilateral lower extremity (principal); E11.622 Type 2 diabetes mellitus with other skin ulcer; I70.242 Atherosclerosis of native arteries of left leg with ulceration of calf; L89.894 Pressure ulcer of other site, stage 4; L97.225 Non-pressure chronic ulcer of left calf with muscle involvement without evidence of necrosis; I70.232 Atherosclerosis of native arteries of right leg with ulceration of calf; L97.215 Non-pressure chronic ulcer of right calf with muscle involvement without evidence of necrosis; I70.248 Atherosclerosis of native arteries of left leg with ulceration of other part of lower leg; L97.822 Non-pressure chronic ulcer of other part of left lower leg with fat layer exposed; I70.238 Atherosclerosis of native arteries of right leg with ulceration of other part of lower leg; L97.812 Non-pressure chronic ulcer of other part of right lower leg with fat layer exposed; E11.621 Type 2 diabetes mellitus with foot ulcer; I70.244 Atherosclerosis of native arteries of left leg with ulceration of heel and midfoot; L89.623 Pressure ulcer of left heel, stage 3; L97.421 Non-pressure chronic ulcer of left heel and midfoot limited to breakdown of skin; I70.234 Atherosclerosis of native arteries of right leg with ulceration of heel and midfoot; L89.613 Pressure ulcer of right heel, stage 3; L97.411 Non-pressure chronic ulcer of right heel and midfoot limited to breakdown of skin; I70.245 Atherosclerosis of native arteries of left leg with ulceration of other part of foot; L97.521 Non-pressure chronic ulcer of other part of left foot limited to breakdown of skin; I70.235 Atherosclerosis of native arteries of right leg with ulceration of other part of foot; E11.42 Type 2 diabetes mellitus with diabetic polyneuropathy; E11.51 Type 2 diabetes mellitus with diabetic peripheral angiopathy without gangrene; E11.36 Type 2 diabetes mellitus with diabetic cataract; R26.2 Difficulty in walking, not elsewhere classified; R26.89 Other abnormalities of gait and mobility; R54 Age-related physical debility; E11.39 Type 2 diabetes mellitus with other diabetic ophthalmic complication; H42 Glaucoma in diseases classified elsewhere; E78.5 Hyperlipidemia, unspecified; I10 Essential (primary) hypertension; Z79.01 Long term (current) use of anticoagulants; Z79.4 Long term (current) use of insulin ==

== ENCOUNTER → 2020-10-19 | Outpatient (CLI) | payer OTHER, MEDICARE | LOC: HYPER 09:42 | PROVIDERS: ATTEND Emergency Medicine | DX: I87.333 Chronic venous hypertension (idiopathic) with ulcer and inflammation of bilateral lower extremity (principal); E11.622 Type 2 diabetes mellitus with other skin ulcer; I70.242 Atherosclerosis of native arteries of left leg with ulceration of calf; L89.894 Pressure ulcer of other site, stage 4; L97.225 Non-pressure chronic ulcer of left calf with muscle involvement without evidence of necrosis; I70.232 Atherosclerosis of native arteries of right leg with ulceration of calf; L97.215 Non-pressure chronic ulcer of right calf with muscle involvement without evidence of necrosis; E11.621 Type 2 diabetes mellitus with foot ulcer; I70.244 Atherosclerosis of native arteries of left leg with ulceration of heel and midfoot; L89.623 Pressure ulcer of left heel, stage 3; L97.421 Non-pressure chronic ulcer of left heel and midfoot limited to breakdown of skin; I70.234 Atherosclerosis of native arteries of right leg with ulceration of heel and midfoot; L89.613 Pressure ulcer of right heel, stage 3; L97.412 Non-pressure chronic ulcer of right heel and midfoot with fat layer exposed; E11.42 Type 2 diabetes mellitus with diabetic polyneuropathy; E11.51 Type 2 diabetes mellitus with diabetic peripheral angiopathy without gangrene; E11.36 Type 2 diabetes mellitus with diabetic cataract; E11.39 Type 2 diabetes mellitus with other diabetic ophthalmic complication; H42 Glaucoma in diseases classified elsewhere; R26.2 Difficulty in walking, not elsewhere classified; R26.89 Other abnormalities of gait and mobility; G90.09 Other idiopathic peripheral autonomic neuropathy; R54 Age-related physical debility; E78.5 Hyperlipidemia, unspecified; I10 Essential (primary) hypertension; Z79.01 Long term (current) use of anticoagulants; Z79.4 Long term (current) use of insulin ==

== ENCOUNTER → 2020-11-02 | Outpatient (CLI) | payer OTHER, MEDICARE | LOC: HYPER 09:48 | PROVIDERS: ATTEND Emergency Medicine Emergency Medical Services | DX: I87.333 Chronic venous hypertension (idiopathic) with ulcer and inflammation of bilateral lower extremity (principal); E11.622 Type 2 diabetes mellitus with other skin ulcer; I70.232 Atherosclerosis of native arteries of right leg with ulceration of calf; L89.894 Pressure ulcer of other site, stage 4; L97.215 Non-pressure chronic ulcer of right calf with muscle involvement without evidence of necrosis; I70.242 Atherosclerosis of native arteries of left leg with ulceration of calf; L97.225 Non-pressure chronic ulcer of left calf with muscle involvement without evidence of necrosis; I70.248 Atherosclerosis of native arteries of left leg with ulceration of other part of lower leg; L97.822 Non-pressure chronic ulcer of other part of left lower leg with fat layer exposed; I70.238 Atherosclerosis of native arteries of right leg with ulceration of other part of lower leg; L97.812 Non-pressure chronic ulcer of other part of right lower leg with fat layer exposed; E11.621 Type 2 diabetes mellitus with foot ulcer; I70.244 Atherosclerosis of native arteries of left leg with ulceration of heel and midfoot; L89.623 Pressure ulcer of left heel, stage 3; L97.421 Non-pressure chronic ulcer of left heel and midfoot limited to breakdown of skin; I70.234 Atherosclerosis of native arteries of right leg with ulceration of heel and midfoot; L89.613 Pressure ulcer of right heel, stage 3; L97.411 Non-pressure chronic ulcer of right heel and midfoot limited to breakdown of skin; I70.245 Atherosclerosis of native arteries of left leg with ulceration of other part of foot; L97.521 Non-pressure chronic ulcer of other part of left foot limited to breakdown of skin; I70.235 Atherosclerosis of native arteries of right leg with ulceration of other part of foot; L97.511 Non-pressure chronic ulcer of other part of right foot limited to breakdown of skin; E11.42 Type 2 diabetes mellitus with diabetic polyneuropathy; E11.36 Type 2 diabetes mellitus with diabetic cataract; E11.39 Type 2 diabetes mellitus with other diabetic ophthalmic complication; H42 Glaucoma in diseases classified elsewhere; R54 Age-related physical debility; R26.89 Other abnormalities of gait and mobility; R26.2 Difficulty in walking, not elsewhere classified; Z79.4 Long term (current) use of insulin; Z79.01 Long term (current) use of anticoagulants ==

== ENCOUNTER → 2020-11-16 | Outpatient (CLI) | payer OTHER, MEDICARE | LOC: HYPER 09:36 | PROVIDERS: ATTEND Emergency Medicine | DX: I87.333 Chronic venous hypertension (idiopathic) with ulcer and inflammation of bilateral lower extremity (principal); E11.622 Type 2 diabetes mellitus with other skin ulcer; I70.242 Atherosclerosis of native arteries of left leg with ulceration of calf; L89.894 Pressure ulcer of other site, stage 4; L97.225 Non-pressure chronic ulcer of left calf with muscle involvement without evidence of necrosis; I70.232 Atherosclerosis of native arteries of right leg with ulceration of calf; L97.215 Non-pressure chronic ulcer of right calf with muscle involvement without evidence of necrosis; I70.248 Atherosclerosis of native arteries of left leg with ulceration of other part of lower leg; L97.822 Non-pressure chronic ulcer of other part of left lower leg with fat layer exposed; I70.238 Atherosclerosis of native arteries of right leg with ulceration of other part of lower leg; L97.812 Non-pressure chronic ulcer of other part of right lower leg with fat layer exposed; E11.621 Type 2 diabetes mellitus with foot ulcer; I70.234 Atherosclerosis of native arteries of right leg with ulceration of heel and midfoot; L89.613 Pressure ulcer of right heel, stage 3; L97.411 Non-pressure chronic ulcer of right heel and midfoot limited to breakdown of skin; I70.244 Atherosclerosis of native arteries of left leg with ulceration of heel and midfoot; L97.421 Non-pressure chronic ulcer of left heel and midfoot limited to breakdown of skin; L89.623 Pressure ulcer of left heel, stage 3; I70.245 Atherosclerosis of native arteries of left leg with ulceration of other part of foot; L97.521 Non-pressure chronic ulcer of other part of left foot limited to breakdown of skin; I70.235 Atherosclerosis of native arteries of right leg with ulceration of other part of foot; L97.511 Non-pressure chronic ulcer of other part of right foot limited to breakdown of skin; R54 Age-related physical debility; R26.2 Difficulty in walking, not elsewhere classified; R26.89 Other abnormalities of gait and mobility; E11.43 Type 2 diabetes mellitus with diabetic autonomic (poly)neuropathy; E11.36 Type 2 diabetes mellitus with diabetic cataract; E11.39 Type 2 diabetes mellitus with other diabetic ophthalmic complication; H42 Glaucoma in diseases classified elsewhere; Z79.4 Long term (current) use of insulin; Z79.01 Long term (current) use of anticoagulants; Z79.82 Long term (current) use of aspirin; Z79.899 Other long term (current) drug therapy ==

== ENCOUNTER → 2020-12-14 | Outpatient (CLI) | payer OTHER, MEDICARE | LOC: HYPER 08:41 | PROVIDERS: ATTEND Emergency Medicine Emergency Medical Services | DX: I87.333 Chronic venous hypertension (idiopathic) with ulcer and inflammation of bilateral lower extremity (principal); E11.622 Type 2 diabetes mellitus with other skin ulcer; I70.242 Atherosclerosis of native arteries of left leg with ulceration of calf; L89.894 Pressure ulcer of other site, stage 4; L97.225 Non-pressure chronic ulcer of left calf with muscle involvement without evidence of necrosis; I70.232 Atherosclerosis of native arteries of right leg with ulceration of calf; L97.215 Non-pressure chronic ulcer of right calf with muscle involvement without evidence of necrosis; E11.621 Type 2 diabetes mellitus with foot ulcer; I70.234 Atherosclerosis of native arteries of right leg with ulceration of heel and midfoot; L89.613 Pressure ulcer of right heel, stage 3; L97.415 Non-pressure chronic ulcer of right heel and midfoot with muscle involvement without evidence of necrosis; I70.244 Atherosclerosis of native arteries of left leg with ulceration of heel and midfoot; L89.623 Pressure ulcer of left heel, stage 3; L97.421 Non-pressure chronic ulcer of left heel and midfoot limited to breakdown of skin; R54 Age-related physical debility; R26.2 Difficulty in walking, not elsewhere classified; R26.89 Other abnormalities of gait and mobility; E11.43 Type 2 diabetes mellitus with diabetic autonomic (poly)neuropathy; E11.36 Type 2 diabetes mellitus with diabetic cataract; E11.39 Type 2 diabetes mellitus with other diabetic ophthalmic complication; H42 Glaucoma in diseases classified elsewhere; E11.51 Type 2 diabetes mellitus with diabetic peripheral angiopathy without gangrene; E78.5 Hyperlipidemia, unspecified; Z79.4 Long term (current) use of insulin; Z79.01 Long term (current) use of anticoagulants; Z79.82 Long term (current) use of aspirin ==

== ENCOUNTER → 2020-12-28 | Outpatient (CLI) | payer OTHER, MEDICARE | LOC: HYPER 08:17 | PROVIDERS: ATTEND Emergency Medicine Emergency Medical Services | DX: I87.333 Chronic venous hypertension (idiopathic) with ulcer and inflammation of bilateral lower extremity (principal); E11.622 Type 2 diabetes mellitus with other skin ulcer; L89.894 Pressure ulcer of other site, stage 4; I70.242 Atherosclerosis of native arteries of left leg with ulceration of calf; L97.225 Non-pressure chronic ulcer of left calf with muscle involvement without evidence of necrosis; I70.232 Atherosclerosis of native arteries of right leg with ulceration of calf; L97.215 Non-pressure chronic ulcer of right calf with muscle involvement without evidence of necrosis; I70.248 Atherosclerosis of native arteries of left leg with ulceration of other part of lower leg; L97.822 Non-pressure chronic ulcer of other part of left lower leg with fat layer exposed; I70.238 Atherosclerosis of native arteries of right leg with ulceration of other part of lower leg; L97.812 Non-pressure chronic ulcer of other part of right lower leg with fat layer exposed; E11.621 Type 2 diabetes mellitus with foot ulcer; L97.422 Non-pressure chronic ulcer of left heel and midfoot with fat layer exposed; I70.244 Atherosclerosis of native arteries of left leg with ulceration of heel and midfoot; L89.623 Pressure ulcer of left heel, stage 3; I70.234 Atherosclerosis of native arteries of right leg with ulceration of heel and midfoot; L89.613 Pressure ulcer of right heel, stage 3; L97.411 Non-pressure chronic ulcer of right heel and midfoot limited to breakdown of skin; I70.245 Atherosclerosis of native arteries of left leg with ulceration of other part of foot; L97.521 Non-pressure chronic ulcer of other part of left foot limited to breakdown of skin; I70.235 Atherosclerosis of native arteries of right leg with ulceration of other part of foot; L97.511 Non-pressure chronic ulcer of other part of right foot limited to breakdown of skin; E11.43 Type 2 diabetes mellitus with diabetic autonomic (poly)neuropathy; E11.51 Type 2 diabetes mellitus with diabetic peripheral angiopathy without gangrene; R54 Age-related physical debility; R26.89 Other abnormalities of gait and mobility; R26.2 Difficulty in walking, not elsewhere classified; E11.36 Type 2 diabetes mellitus with diabetic cataract; E11.39 Type 2 diabetes mellitus with other diabetic ophthalmic complication; H42 Glaucoma in diseases classified elsewhere; E78.5 Hyperlipidemia, unspecified; F41.9 Anxiety disorder, unspecified; Z79.899 Other long term (current) drug therapy; Z79.01 Long term (current) use of anticoagulants; Z79.4 Long term (current) use of insulin; Z79.82 Long term (current) use of aspirin ==

== ENCOUNTER → 2021-01-09 | Outpatient (CLI) | payer OTHER, MEDICARE ==
[~2021-01-09] VITALS: Ht 154.9 cm; Wt 79.4 kg
[~2021-01-09] MED LIST changes: +MULTI VITAMIN1 EACH PO; +NEURONTIN 300M300 M2 PO; +PLAVIX 75 MG TA75 MG PO; +ROSUVASTATIN CA20 MG PO; +TIMOLOL MALEATE5 ML OPHTHALMIC; +TYLENOL EXTRA500 MG PO
[2021-01-09 07:19] VITALS: BP 134/62
[2021-01-09 07:39] LABS: HEMATOCRIT 34.1 % (37.0-47.0); HEMOGLOBIN 11.3 gm/dL (12.0-15.0); MCH 28.1 pg (26.0-34.0); MCHC 33.1 g/dL (28.0-37.0); MCV 84.9 fL (80.0-100.0); RBC 4.02 mil/uL (4.20-5.00); RDW 17.5 % (10.5-14.5); WBC 13.1 thou/uL (4.0-11.0)
[2021-01-09 07:46] LABS: CREATININE 0.7 mg/dL (0.6-1.0); POTASSIUM 3.8 mmol/L (3.5-5.1)
--- NOTE | 2021-01-10 17:17 | CATHLAB ---
[facility] [place] [address] INVASIVE PROCEDURE REPORT Name: DERREK EDUARDO Room #: REG KELI Susan#: [id number] Admission: 01/09/21 Attend Phys: Joni Mejia MD Discharge: Date of : 37 Report #: [id number] THIS REPORT FOR: cc: FAM - Family physician unknown FAM - Family physician unknown Parviz Jones MD [facility] ~ APPROVED REPORT Study performed: 01/09/2021 09:38:32 Patient Details Patient Status: Out-Patient Room #: The patient is a 85 year-old female Event Personnel Parviz Jones Bush Hog Operator, Marsha Guajardo RN RN, Maya Aguero Monitor, Oliva Townsend RT(R)() Scrub Procedures Performed DIAGNOSTIC HEART CATH WITH LEFT VENTRI.GRAM Procedure Narrative A 6F SHEATH sheath was inserted into the RFA^. Coronary angiography was performed using coronary diagnostic catheters. The right coronary system was accessed and visualized with a JR4 catheter. The left coronary system was accessed and visualized with a JL4 catheter. The left ventricle was accessed and visualized with a STR PIG catheter. Left ventriculogram was performed in 30 degree projection. There was no hematoma. Intraoperative Conscious Sedation Fentanyl mcg Versed mg Fluoro Time: 11.10 minutes Dose: DAP 8524.80 cGycm2 Contrast Type and Amount: Omnipaque 139 ml Hemodynamics The aortic pressure is 144/49 mmHg with a mean of 87 mmHg. The left ventricular pressure is 162/8 mmHg with a mean of mmHg. The left ventricular end diastolic pressure is 23 mmHg. Conclusion #1. Hyperdynamic LV function EF 70%. [facility] [address] [address] INVASIVE PROCEDURE REPORT Name: ALESHADERREK Room #: REG JACKIE Davis#: [id number] Admission: 01/09/21 Attend Phys: Joni Mejia, Discharge: Date of : 37 Report #: [id number] #2 left main with mild disease giving rise to LAD and circumflex. #3 the LAD is an eccentric 80% proximal lesion moderately diseased throughout and extends around the apex of the relatively attenuated vessel. Collaterally filling a PDA. This is filled via the distal portion of the LAD collateral branch. Diagonal branch is moderately diseased #4 circumflex OM nondominant with a moderate disease no high-grade occlusive disease proximal calcification noted #5 a previously dominant right coronary is occluded the PDA is filled via the left system LAD predominately as stated above Recommendations and plan: Continue aggressive risk factor modification. Patient has high-grade carotid disease. This will be addressed via TCAR. Will evaluate for anterior wall ischemia and follow-up. Could consider intervention to proximal LAD. After carotid treatment. <ELECTRONICALLY SIGNED> By: Parviz Jones MD, [facility] 04/1715 15 15 Parviz Jones MD, FACC /INF
== END | disposition home or self-care (01) ==
LOC: CATH 06:42
PROVIDERS: ATTEND Nuclear Medicine Nuclear Cardiology
DX: I25.10 Atherosclerotic heart disease of native coronary artery without angina pectoris (principal); I70.238 Atherosclerosis of native arteries of right leg with ulceration of other part of lower leg; I70.248 Atherosclerosis of native arteries of left leg with ulceration of other part of lower leg; I70.1 Atherosclerosis of renal artery; I65.21 Occlusion and stenosis of right carotid artery; L97.919 Non-pressure chronic ulcer of unspecified part of right lower leg with unspecified severity; L97.929 Non-pressure chronic ulcer of unspecified part of left lower leg with unspecified severity; I10 Essential (primary) hypertension; E11.9 Type 2 diabetes mellitus without complications; H40.9 Unspecified glaucoma; Z98.890 Other specified postprocedural states; Z79.899 Other long term (current) drug therapy; Z79.4 Long term (current) use of insulin; Z82.49 Family history of ischemic heart disease and other diseases of the circulatory system; Z88.2 Allergy status to sulfonamides

== ENCOUNTER → 2021-01-11 | Outpatient (CLI) | payer OTHER, MEDICARE | LOC: HYPER 08:12 | PROVIDERS: ATTEND Emergency Medicine Emergency Medical Services | DX: I87.333 Chronic venous hypertension (idiopathic) with ulcer and inflammation of bilateral lower extremity (principal); E11.622 Type 2 diabetes mellitus with other skin ulcer; L89.894 Pressure ulcer of other site, stage 4; I70.242 Atherosclerosis of native arteries of left leg with ulceration of calf; L97.225 Non-pressure chronic ulcer of left calf with muscle involvement without evidence of necrosis; I70.232 Atherosclerosis of native arteries of right leg with ulceration of calf; L97.215 Non-pressure chronic ulcer of right calf with muscle involvement without evidence of necrosis; E11.621 Type 2 diabetes mellitus with foot ulcer; I70.244 Atherosclerosis of native arteries of left leg with ulceration of heel and midfoot; L89.623 Pressure ulcer of left heel, stage 3; L97.422 Non-pressure chronic ulcer of left heel and midfoot with fat layer exposed; I70.234 Atherosclerosis of native arteries of right leg with ulceration of heel and midfoot; L89.613 Pressure ulcer of right heel, stage 3; L97.411 Non-pressure chronic ulcer of right heel and midfoot limited to breakdown of skin; E11.43 Type 2 diabetes mellitus with diabetic autonomic (poly)neuropathy; E11.51 Type 2 diabetes mellitus with diabetic peripheral angiopathy without gangrene; R54 Age-related physical debility; R26.89 Other abnormalities of gait and mobility; R26.2 Difficulty in walking, not elsewhere classified; E11.36 Type 2 diabetes mellitus with diabetic cataract; E11.39 Type 2 diabetes mellitus with other diabetic ophthalmic complication; H42 Glaucoma in diseases classified elsewhere; E78.5 Hyperlipidemia, unspecified; F41.9 Anxiety disorder, unspecified; Z79.899 Other long term (current) drug therapy; Z79.01 Long term (current) use of anticoagulants; Z79.4 Long term (current) use of insulin; Z79.82 Long term (current) use of aspirin ==

== ENCOUNTER → 2021-01-16 | Outpatient (CLI) | payer OTHER, MEDICARE ==
[~2021-01-16] MED LIST changes: -NEURONTIN 300M300 M2 PO
[2021-01-16 13:46] LABS: ABSOLUTE NEUTROPHILS 8.7 thou/uL (1.4-8.2); BASOPHILS 0.6 % (0.0-2.0); EOSINOPHILS 5.2 % (0.0-3.0); HEMATOCRIT 32.8 % (37.0-47.0); HEMOGLOBIN 10.7 gm/dL (12.0-15.0); LYMPHOCYTES 18.3 % (24.0-44.0); MCH 27.9 pg (26.0-34.0); MCHC 32.8 g/dL (28.0-37.0); MCV 85.2 fL (80.0-100.0); MONOCYTES 7.5 % (1.0-8.0); PLATELET COUNT 321 thou/uL (150-400); POLYS 68.4 % (36.0-66.0); RBC 3.85 mil/uL (4.20-5.00); RDW 17.4 % (10.5-14.5); URINE BILIRUBIN NEGATIVE (Negative); URINE BLOOD NEGATIVE (Negative); URINE CLARITY CLEAR; URINE COLOR YELLOW; URINE GLUCOSE-RANDOM* NEGATIVE (Negative); URINE KETONES TRACE (Negative); URINE LEUKOCYTES-REFLEX TRACE (Negative); URINE NITRITE-REFLEX NEGATIVE (Negative); URINE PROTEIN (DIPSTICK) TRACE (Negative); URINE SPECIFIC GRAVITY >= 1.030 (1.005-1.035); URINE UROBILINOGEN 0.2 E.U./dl (0.2-1.0); WBC 12.8 thou/uL (4.0-11.0)
[2021-01-16 14:01] LABS: APTT 27.4 Seconds (24.5-32.8); INR 0.96; PROTIME 10.5 Seconds (10.5-12.1)
[2021-01-16 14:04] LABS: CALCIUM 8.6 mg/dL (8.5-10.1); CREATININE 0.6 mg/dL (0.6-1.0); POTASSIUM 3.9 mmol/L (3.5-5.1); TOTAL BILIRUBIN 0.3 mg/dL (0.2-1.0); TOTAL PROTEIN 6.9 g/dL (6.4-8.2)
== END ==
LOC: PAC 12:33
PROVIDERS: Surgery Vascular Surgery; ATTEND Student in an Organized Health Care Education/Training Program
DX: M85.88 Other specified disorders of bone density and structure, other site (principal); R05 Cough; Z20.822 Contact with and (suspected) exposure to COVID-19; M47.814 Spondylosis without myelopathy or radiculopathy, thoracic region

== ENCOUNTER 2021-01-18 08:55 | Inpatient (IN) | payer OTHER, MEDICARE ==
[~2021-01-18] VITALS: Ht 154.9 cm; Wt 68.0 kg
[2021-01-18 10:30] VITALS: BP 158/70
[2021-01-18 14:42] VITALS: BP 113/37
[2021-01-18 14:46] VITALS: BP 105/36
[2021-01-18] MEDS ORDERED: NEURONTIN 300M300 M2 PO (15:10)
[2021-01-19 04:41] LABS: HEMATOCRIT 28.8 % (37.0-47.0); HEMOGLOBIN 9.5 gm/dL (12.0-15.0); MCH 28.6 pg (26.0-34.0); MCHC 32.9 g/dL (28.0-37.0); MCV 86.8 fL (80.0-100.0); RBC 3.32 mil/uL (4.20-5.00); WBC 10.2 thou/uL (4.0-11.0)
[2021-01-19 04:53] LABS: CREATININE 0.6 mg/dL (0.6-1.0)
--- NOTE | 2021-01-19 05:57 | NUR ---
Progressing toward discharge goals. Neuro status has remained unchanged this shift. Pain adequately controlled with Tylenol, one dose Fentanyl given for severe neuropathy pain. Monitor sinus elisha/sinus rhythm, rates 50-63. SBP within parameters, though arterial line somewhat positional this a.m. On Cardene at beginning of shift but titrated off at 2100. Taking fluids without nausea or vomitting. Urine output adequate, 450 cc this shift. All drsgs. clean, dry and intact.
[2021-01-19 13:48] VITALS: BP 121/44
[2021-01-19 14:00] VITALS: BP 116/41
[2021-01-19 14:01] VITALS: BP 120/44
[2021-01-19 15:00] VITALS: BP 134/47
[2021-01-19 16:00] VITALS: BP 132/44
--- NOTE | 2021-01-19 18:06 | NUR ---
AT APPX 1700, PT MOVED TO CCU ROOM 213 VIA BED. CONTINOUS REMOTE TELEMETRY PLACED ON PT. VS TAKEN AND NOTED. PT AND DAUGHTER, NOAH, ORIENTED TO ROOM AND UNIT. PT EATING DINNER WITHOUT PROBLEM. F/C DISCONTINUED AND PT IS DTV.
[2021-01-19 19:38] VITALS: BP 146/51
[2021-01-20] VITALS (7 sets, daily range): BP systolic 144–165; BP diastolic 51–57
--- NOTE | 2021-01-20 05:07 | NUR ---
SLEPT MOST OF SHIFT. PAIN MEDICATION GIVEN NEEDED. PATIENT REFUSES TO TURN STATING SHE ONLY SLEEPS ON HER BACK. INCONTINENT LARGE AMOUNT OF URINE. PLAN FOR RETURN TO HOME. CONTINUE TO ASSES.
--- NOTE | 2021-01-20 07:40 | O ---
[facility] [place] [address] OPERATIVE REPORT Name: DERREK EDUARDO Room #: 213-P ADM IN M.R.#: [id number] Admission: 01/18/21 Attend Phys: Hai Perdomo MD Discharge: Date of : 37 Report #: [id number] THIS REPORT FOR: cc: Mena Barton MD, Stephanie M. MD Forman, John M. MD ~ DOC #: [id number] Hai Perdomo MD DATE OF SERVICE: 01/18/2021 PREOPERATIVE DIAGNOSIS: Right carotid artery stenosis. POSTOPERATIVE DIAGNOSIS: Right carotid artery stenosis. OPERATION: Transcarotid arterial revascularization (right) with intraoperative arteriograms. SURGEONS: Dr. Hai Perdomo and Dr. Joni Mejia. INDUSTRIAL WASTE INSPECTOR: CARLEY Watson ANESTHESIA: General. INDICATION: The patient is an 86-year-old seen for Dr. Mejia, the patient has a 90+ percent stenosis at the origin of the right internal carotid, this has been asymptomatic. Left carotid has trivial disease. FINDINGS AND TECHNIQUE: After general anesthesia was established, an incision was made in the right neck to expose the common carotid artery. Pursestring suture was placed. Separately, the right femoral artery was punctured with the vascular needle followed by guidewire and sheath, and through this sheath, a stiff wire was placed and the venous portion of the arteriovenous fistula was placed. 10,000 units of heparin were given. The common carotid was entered with the vascular needle followed by guidewire and sheath, and through the sheath, the stiff wire was placed in the arterial portion of the fistula was inserted and secured. Flow was established through the fistula when the ACT was satisfactory, flow in the common carotid was occluded. Arteriography demonstrated the stenosis. Guidewire was passed across the stenosis and pre-stent dilatation was done using a 4.0 x 30 Cordis balloon. A 9 x 40 Enroute stent was placed in the internal [facility] [address] [place] [address] OPERATIVE REPORT Name: DERREK EDUARDO Room #: 213-P [facility] IN [facility].#: [id number] Admission: 01/18/21 Attend Phys: Hai Perdomo MD Discharge: Date of : 37 Report #: [id number] and common carotid artery followed by post-stent dilatation with 5.0 x 30 mm Aviator Cordis balloon. After waiting the requisite 2 minutes, an arteriogram was taken that showed good correction of the lesion. Antegrade flow was reestablished and the shunt was dismantled. The arterial portion was removed and pursestring was tied tight and a second stitch was placed for secured closure. The venous portion was removed and pressure was applied to the groin. Protamine was given to reverse heparin. When hemostasis was satisfactory, the wound was closed in layers. The patient was taken to the recovery area in good condition, having tolerated the procedure well. Hai Perdomo MD JF/BECKY <ELECTRONICALLY SIGNED> By: Hai Perdomo MD 01/20/21 0740 1406 1608 Hai Perdomo MD /nt
--- NOTE | 2021-01-20 07:54 | HC ---
[facility] [place] [address] CONSULTATION Name: DERREK EDUARDO Room #: 213-P ADM IN M.R.#: [id number] Admission: 01/18/21 Attend Phys: Hai Perdomo MD Discharge: Date of : 37 Report #: [id number] THIS REPORT FOR: cc: Mena Barton MD, Stephanie M. MD [place], Allen B. MD ~ DATE OF SERVICE: 01/19/2021 WOUND CARE CONSULTATION REASON FOR CONSULTATION: Large ulceration of the right posterior calf, small ulceration of the left calf in the setting of peripheral vascular disease. HISTORY OF PRESENT ILLNESS: The patient is an 86-year-old woman who is now postoperative day #1 status post transcarotid arterial revascularization after discovery of 85% stenosis of her right carotid. She has been cared for in the Wound Care Clinic for large ulcerations of her right posterior calf and small ulceration of her left calf in the setting of severe peripheral vascular disease. She is being monitored in the ICU setting now postoperatively. Wound care is consulted due to her large wound of the right posterior calf. Wound care orders were for wound cleanser, application of Aquacel silver ABD and a Kerlix wrap. PAST MEDICAL HISTORY: 1. Peripheral vascular disease of lower extremities. 2. Right carotid 95% stenosis. 3. Coronary artery disease. 4. Diabetes mellitus type 2 with skin ulcers. 5. Hypertension. 6. Chronic lower extremity wounds. ALLERGIES: SULFA. MEDICATIONS: Include: 1. Amlodipine. 2. Aspirin. 3. Atorvastatin. 4. Clopidogrel. 5. Timolol. 6. Famotidine. 7. Cefazolin. 8. Ultram. 9. Insulin. PAST MEDICAL HISTORY: Includes: [facility] [address] [place] [address] CONSULTATION Name: DERREK EDUARDO Astrid Room #: 213-P [facility] IN ..#: [id number] Admission: 01/18/21 Attend Phys: Hai Perdomo MD Discharge: Date of : 37 Report #: [id number] 1. Colitis. 2. Glaucoma. 3. Peripheral artery disease of lower extremities with bilateral lower extremity stenting. PAST SURGICAL HISTORY: 1. Peripheral artery disease with bilateral lower extremity stenting. 2. [place] teeth extraction. 3. section. 4. D and C, now postoperative day #1. 5. Transcarotid arterial revascularization. PHYSICAL EXAMINATION: GENERAL: Shows an elderly woman who is alert, pleasant, and conversant. HEENT: Mucous membranes are moist. LUNGS: Respirations unlabored. ABDOMEN: Soft. EXTREMITIES: Show a large chronic ulceration of the right posterior calf measuring approximately 18 x 5 cm. This is a heavy foul smelling exudate. Dressings are removed. Wound itself has slight adherent slough, but pink granulation tissue at the base. Gentamicin 0.1% Aquacel silver ABD and a Kerlix wrap were ordered. There is a small ulceration in the left posterior calf. IMPRESSION: 1. Postoperative day #1, transcarotid arterial revascularization for 95% right carotid stenosis. 2. Peripheral vascular disease of lower extremities with history of stenting. Large ulceration of the right posterior calf. Small ulcers of the left posterior calf. 3. Carotid artery disease. 4. Diabetes type 2 with skin ulcers. Wound care. WOUND CARE PLAN: Maximize nutrition. Gentamicin 0.1% cream to ulcers of the right and left lower extremity daily. Cover with Aquacel silver ABD, Kerlix wrap daily. Wound care team will follow. <ELECTRONICALLY SIGNED> By: Tim Damon MD 01/20/21 0754 0658 1006 Tim Damon MD /nt
--- NOTE | 2021-01-20 12:17 | NUR ---
PT DISCHARGED TO [facility] WITH BRIAN AND Bryson/Anne MANCILLA
== END 2021-01-20 12:17 | disposition home or self-care (01) | DRG 35 ==
LOC: PRE → TBA 08:55 → PRE 09:12 → ICU 14:48 → 2N 01-19 17:13
PROVIDERS: ADMIT Surgery Vascular Surgery; ATTEND Surgery Vascular Surgery
PROC: 037K3DZ Dilation of Right Internal Carotid Artery with Intraluminal Device, Percutaneous Approach (ICD-10-PCS; principal; 2021-01-18)
DX: I65.21 Occlusion and stenosis of right carotid artery (principal); D68.69 Other thrombophilia; E11.40 Type 2 diabetes mellitus with diabetic neuropathy, unspecified; I25.10 Atherosclerotic heart disease of native coronary artery without angina pectoris; E11.51 Type 2 diabetes mellitus with diabetic peripheral angiopathy without gangrene; I10 Essential (primary) hypertension; K08.409 Partial loss of teeth, unspecified cause, unspecified class; Z79.82 Long term (current) use of aspirin; Z79.899 Other long term (current) drug therapy; Z79.4 Long term (current) use of insulin; Z88.2 Allergy status to sulfonamides
CPT/HCPCS: 10204; 10797; 47375; 48889; 50010; 50101; 50386; 50417; 50455; 51301; 52287; 54118; 56524; 56526; 56528; 62110; 62900; 70005

== ENCOUNTER 2021-02-04 11:49 | Inpatient (IN) | payer OTHER, MEDICARE ==
[~2021-02-04] VITALS: Ht 154.9 cm; Wt 70.3 kg
--- NOTE | ~2021-02-04 | EMS ---
[address] [address] EMS Patient Care Report Name: ALESHATOMMY RUGGIEROJERRY Resendiz Room #: 452-P ADM IN M.R.#: [id number] Admission: 02/04/21 Attend Phys: Modesta Plummer MD Discharge: Date of : 39 Report #: [id number] THIS REPORT FOR: //name// Report Transmitted: 02/04/2021 21:10 EMS Care Summary [place], [place]/[facility] Incident [id number] @ 02/04/2021 11:08 Incident Location [address] [facility] 314 Patient DERREK OLIVAS Female, 86 Years 1935 Patient Address [address] [place] [id number] Patient History Hypertension (HTN),Hyperlipidemia, Patient Allergies Sulfa,Adhesive Tape, Patient Medications Tramadol, Amlodipine, Clopidogrel, Timolol, Gabapentin, Chief Complaint My lower back, pain down my left Disposition Transported No Lights/[place] Dispatch Reason Sick Person Transported To [facility] Narrative Call for a sick, upon arrival, pt was SWEENEY x 3 sitting in her wheel chair, her daughter by her side. She said she fell last week and has back pain that is getting worse, the pain also shoots down her leg. They request transport to [address] [address] EMS Patient Care Report Name: DERREK EDUARDO Room #: 452-P ADM IN .R.#: [id number] Admission: 02/04/21 Attend Phys: Modesta Plummer MD Discharge: Date of : 39 Report #: [id number] [facility] ER for further eval & tx. Pt assisted to the EMS cot and loaded into the ambulance w/o incident. Vitals obtained x 2. En route: no changes. RR to ER. Arrived: pt taken to ER hallwaybed and moved to their bed w/o incident. Pt care & report to ER staff. Initial Vitals @11:34P: 89,R: 16,BP: 149/75,Pain: 8/10,GCS: 15,CO: 2,SpO2: 99,Revised Trauma: 12, @11:33P: 93,R: 16,BP: 142/65,Pain: 8/10,GCS: 15,CO: 3,SpO2: 98,Revised Trauma: 12, Assessments @11:37MENTAL:SKIN:HEENT:LUNG SOUNDS:ABDOMEN:PELVIS//GI:EXTREMITIES:Left Leg: SIMI,Left Leg: SIMI,PULSE:NEURO: Impression Back Pain Procedures @11:24ALS AssessmentResponse: UnchangedSucceeded@11:27StretcherResponse: Unchanged Timeline 11:05,Call Received 11:05,Dispatch Notified 11:08,Dispatched 11:08,En Route 11:20,On Scene 11:24,At Patient 11:24,ALS Assessment,Response: UnchangedSucceeded, 11:27,Stretcher,Response: Unchanged 11:33,BP: 142/65 M,PULSE: 93,RR: 16 R,SPO2: 98 Ox,ETCO2: ,BG: ,PAIN: 8,GCS: 15, 11:34,BP: 149/75 M,PULSE: 89,RR: 16 R,SPO2: 99 Ox,ETCO2: ,BG: ,PAIN: 8,GCS: 15, 11:37,Depart Scene 11:47,At Destination 12:14,Call Closed Disclaimer v1.1 Copyright 2020 [employer] This EMS Care Summary contains data elements from the applicable legal record (which may be displayed differently). It is designed to provide pertinent information for the following purposes: continuity of care, clinical quality, and state data reporting. The complete legal record is available to ED staff and administrators of the receiving hospital in [employer] Patient Tracker. All data is provided "as is."
--- NOTE | ~2021-02-04 | HC ---
[facility] [place] [address] CONSULTATION Name: DERREK EDUARDO Room #: 452-P [facility] IN M.R.#: [id number] Admission: 02/04/21 Attend Phys: Modesta Plummer MD Discharge: 02/06/21 Date of : 39 Report #: [id number] THIS REPORT FOR: cc: Mena Barton MD, Stephanie M. MD Althoff, Jeffrey R. MD ~ DOC #: [id number] Tony Umanzor MD DATE OF SERVICE: 02/05/2021 CHIEF COMPLAINT: Bilateral lower extremity ulcerations. 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 We have followed her for some time with regard to lower extremity ulceration. She had significant vascular disease and underwent percutaneous angioplasty to the right lower extremity and has had steady improvement. She is admitted to the hospital at this time after having slid off her wheelchair and having some hip and back pain. I have been asked to see her with regard to wound care. She is awake and alert, but having some pain, lying flat in bed. PAST MEDICAL HISTORY: Positive for history of bilateral lower extremity ulcerations, mixed venous and arterial origin, diabetes mellitus, hypertension, coronary artery disease and peripheral artery disease, status post percutaneous intervention. SOCIAL HISTORY: Negative for alcohol or tobacco use. She is accompanied by her daughter today who often accompanies her on her clinic visits. MEDICATIONS: Include Ultram, acetaminophen, Lasix, Livalo, Neurontin, Norvasc, enteric-coated aspirin, Humalog, Plavix. ALLERGIES: MORPHINE, SULFA, AND ADHESIVE. REVIEW OF SYSTEMS: CONSTITUTIONAL: The patient is denies fever, chills or weight loss. NEUROLOGICAL: The patient denies focal weakness, numbness or tingling. EYES: The patient denies visual changes, redness or drainage. ENT: The patient denies earache, nasal drainage, sore throat. CARDIOVASCULAR: The patient denies chest pain, palpitations, diaphoresis. PULMONARY: No cough, shortness of breath. GASTROINTESTINAL: The patient denies nausea, vomiting, diarrhea or abdominal pain. ORTHOPEDIC: The patient has pain in her hip and back. Others systems on a 14-point review of systems are negative. [address] [address] CONSULTATION Name: DERREK EDUARDO Room #: 452-P [facility] IN .R.#: [id number] Admission: 02/04/21 Attend Phys: Modesta Plummer MD Discharge: 02/06/21 Date of : 39 Report #: [id number] PHYSICAL EXAMINATION: VITAL SIGNS: At this time include temperature 37.0, pulse 91, respiration 19, blood pressure 161/73. GENERAL: This is a somewhat chronically ill-appearing female patient in minimal distress. HEENT: Head normocephalic. Nose and throat are clear. LUNGS: Clear. NECK: Supple. ABDOMEN: Soft. Bowel sounds present. EXTREMITIES: Wrapped with compression bandages in place. I was going to remove them to evaluate her wounds; however, the patient's daughter have requested that they be left in place until tomorrow to stay on her normal dressing change schedule. NEUROLOGIC: She is alert, oriented, appropriate. LABORATORY DATA: Include sodium 139, potassium 3.9, chloride 103, CO2 23, BUN 11, creatinine 0.4, glucose 116. White blood cell count 11.0, hemoglobin 10.2. CLINICAL IMPRESSION: 1. Chronic ulcerations, bilateral lower extremities, right greater than left both mixed venous and arterial origin. 2. Lymphedema, bilateral lower extremities. 3. Severe peripheral vascular disease, status post percutaneous intervention. RECOMMENDATIONS: At this point in time, recommend continued elevation of the lower extremities. We will change her dressings tomorrow. Likely will use a Dakin's moist gauze dressing to be changed daily. Further assessment and decision making to be forthcoming upon evaluating her tomorrow. I appreciate being asked to see her in consultation. Tony Umanzor MD JRA/MIGUELANGEL By: [id number] Tony Umanzor MD /nt
[~2021-02-04 11:49] MED LIST changes: +NEURONTIN 300M300 M2 PO
[2021-02-04 11:54] VITALS: BP 147/58
[2021-02-04] MEDS ORDERED: LIVALO4 MG PO (13:15)
[2021-02-04 16:18] VITALS: BP 143/75
--- NOTE | 2021-02-04 16:38 | NUR ---
PT HAD CARDIAC STENT PLACED EARLIER THIS MONTH
--- NOTE | 2021-02-04 16:56 | NUR ---
CALL TO MRI TO GET ESTIMATED TIME FOR MRI, MESSAGE LEFT
[2021-02-04 19:37] VITALS: BP 164/55
--- NOTE | 2021-02-04 20:00 | NUR ---
Received pt form the ER at 6:20 pm. Wound on BLE noted wraped with LORELEI bandages. Refused for wound to be assessed stating would care has just changed this and only wound care should be the ones to touch the wound. DAughter is at the bedside, stated she isthe dpoa and pt is a no code and all records have been given in previous admission. Endorsed to the night nurse.
[2021-02-04 21:08] LABS: ABSOLUTE NEUTROPHILS 10.6 thou/uL (1.4-8.2); BASOPHILS 0.7 % (0.0-2.0); HEMATOCRIT 31.1 % (37.0-47.0); HEMOGLOBIN 10.4 gm/dL (12.0-15.0); LYMPHOCYTES 12.4 % (24.0-44.0); MCHC 33.5 g/dL (28.0-37.0); MCV 86.6 fL (80.0-100.0); PLATELET COUNT 344 thou/uL (150-400); POLYS 75.9 % (36.0-66.0); RDW 16.8 % (10.5-14.5)
[2021-02-04 21:13] LABS: CALCIUM 8.9 mg/dL (8.5-10.1); CREATININE 0.5 mg/dL (0.6-1.0)
[2021-02-04 21:19] LABS: ALBUMIN 2.6 g/dL (3.4-5.0); TOTAL BILIRUBIN 0.3 mg/dL (0.2-1.0); TOTAL PROTEIN 7.3 g/dL (6.4-8.2)
--- NOTE | 2021-02-05 03:43 | NUR ---
ASSUMED CARE OF PT AT SHIFT CHANGE. PT IS AOX4 AND LETS NEEDS BE KNOWN. FALL PRECAUTION IN PLACE. PT WAS ORIENTED TO HER UNIT AND HER ROOM. PT IS [place]. PT AND DTR HELPED ANSWER ADMISSION RELATED QUESTIONS. ASSESSMENT CHARTED. PT TOOK HS MEDS WITH WATER. PT HAS BLE WOUNDS BUT DOES NOT WANT DRESSING TO REMOVED FOR PICS DRESSING WAS JUST CHANGED. ASSESSMENT CHARTED. PT WAS ABLE TO GET COMFORTABLE AND SLEEP PART OF THE SHIFT. VSS AND NO S/S OF ACUTE DISTRESS. WILL CONTINUE TO MONITOR.
[2021-02-05 04:38] LABS: HEMATOCRIT 31.5 % (37.0-47.0); HEMOGLOBIN 10.2 gm/dL (12.0-15.0); MCH 28.4 pg (26.0-34.0); MCHC 32.4 g/dL (28.0-37.0); MCV 87.7 fL (80.0-100.0); RBC 3.59 mil/uL (4.20-5.00); RDW 16.7 % (10.5-14.5); WBC 11.5 thou/uL (4.0-11.0)
[2021-02-05 04:46] LABS: CALCIUM 8.9 mg/dL (8.5-10.1); CREATININE 0.4 mg/dL (0.6-1.0); POTASSIUM 3.9 mmol/L (3.5-5.1)
[2021-02-05 06:02] VITALS: BP 151/56
[2021-02-05 07:38] VITALS: BP 162/73
--- NOTE | 2021-02-05 10:50 | NUR ---
PT ADMITTED RELATED TO BLE WOUNDS; PAIN; SCIATICA. CM REVIEWED CHART AND SPOKE WITH CARE TEAM. CM MET WITH PT AND DTR AT BEDSIDE THIS DAY. PT IS [place] BUT APPEARED TO BE A&O X4. CM ROLE INTRODUCED. PT INDICATED SHE LIVES IN [place] APART[place] AT [facility]. PT INDICATED SHE HAD BEEN ON SERVICES WITH [facility] AND HAD PD SERVICES THROUGH [facility] FOR PT SERVICES. 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 PT AND DTR INDICATED THAT THEY PREFER TO RETURN TO [place] WITH RESUMPTION OF HH AND CAN INCREASE PD SERVICES WITH [facility] IF NEEDED ONCE MEDICALLY STABLE. CM TO FOLLOW INDICATED WITH DC PLANNING.
--- NOTE | 2021-02-05 14:24 | NUR ---
VARIANCE NOTE: ATTEMPTED TO MEET WITH PT THIS DATE. DTR AT BEDSIDE ASKED TO SPEAK WITH OT/PT. PT'S DTR (SANDRA) REQUESTING TO NOT HAVE PT PARTICIPATE IN ANY OOB ACTIVITY AT THIS TIME, WANTING PT TO HAVE AN MRI COMPLETED PRIOR TO ACTIVITY. PT HAD AN MRI ORDERED, THEN CANCELLED, AND PT'S DTR WOULD LIKE MRI TO STILL BE COMPLETED IF POSSIBLE TO DETERMINE CONCENTRATION AREA NEAR L HIP. P.T. STATED WOULD CALL DR. LANCASTER REGARDING PT'S DTR'S WISHES/CONCERNS. WILL PLAN TO INITIATE O.T. SERVICES TOMORROW/FOLLOWING MRI COMPLETION. THANK YOU.
--- NOTE | 2021-02-05 16:11 | NUR ---
Assumed pt care at 7am.Pt in bed most of the time today but able to repositioned self as needed.Assessment completed.vss.Pt tolerated meds and diet. Dr Gillis and Karen here,order noted.Mag citrated given with am meds and pt has moderate bm few hours later.Mri postponed till tomorrow am after discussion with Dr Berg and Jackie.Family in room most of the time assisting with care.Fall bundle in place. Will continue to monitor.
[2021-02-05 18:16] VITALS: BP 169/66
[2021-02-06 04:13] VITALS: BP 180/83
--- NOTE | 2021-02-06 04:40 | NUR ---
Pt. rested quietly at intervals during the night when checked on during frequent rounds. Pt. refused to have her leg wounds assessed or photograghed. There is a message from wound care to not undress. Tylenol given for pain (see emar) with some relief noted. Bed alarm is on.
[2021-02-06 08:00] VITALS: BP 177/75
[2021-02-06 11:22] VITALS: BP 177/75
--- NOTE | 2021-02-06 11:43 | NUR ---
PT HAD MRI OF HIP DONE THIS DAY NOT SPINE. NEURO SURGERY FOLLOWED UP WITH PT AND DTR AT BEDSIDE AND OFFERED SOME ADDITIONAL IMAGING STUDIES BUT PT DECLINING. PT AND DTR WANT FOR PT TO DC HOME THIS DAY WITH RESUMPTION OF [facility] AND [facility]. PT'S DTR ARRANGED FOR [facility] TO PROVIDE 24/7 ASSISTANCE UPON PT'S DC HOME THIS TIME. CM FAXED CLINICAL INFO TO [facility] AND WILL FAX ORDERS. CM HAD SPOKEN WITH PT'S DTR WHO ASKED ABOUT TRANSPORT AND CM INDICATED THAT [facility] COLD PROVIDE WC FOR $140 OR STRETCHER FOR AROUND $400. CM TO FOLLOW UP WITH PT AND DTR REGARDING DC TRANSPORT.
[2021-02-06 11:47] VITALS: BP 177/75
--- NOTE | 2021-02-06 14:32 | NUR ---
Assumed pt care at 7am.Pt in bed resting and waiting for mri to be completed this am.Assessment completed.vss.Pt wanted to dc home today and doesn't want surgery or any invasive preocedure.Pt left for mri after breakfast and returned some hours later.Dr Gillis and Karen here,dc order noted.Pt will bed dc home after seen by Dr Umanzor.liability claims manager to arrange for transport back to [facility] today.Fall bundle in place. Dr Umanzor notified about seen pt prior to dc home.Message left in his office.No verbal c/o at present.Pt in bed resting with dtr at bs.Will continue to monitor.
== END 2021-02-06 17:14 | disposition home health service (06) | DRG 552 ==
LOC: ER 11:49 → EROBS 14:32 → 4W 14:32
PROVIDERS: Nurse Practitioner Family; ADMIT Internal Medicine; ATTEND Internal Medicine
DX: M48.061 Spinal stenosis, lumbar region without neurogenic claudication (principal); L97.929 Non-pressure chronic ulcer of unspecified part of left lower leg with unspecified severity; L97.919 Non-pressure chronic ulcer of unspecified part of right lower leg with unspecified severity; E44.0 Moderate protein-calorie malnutrition; M54.42 Lumbago with sciatica, left side; I10 Essential (primary) hypertension; I25.10 Atherosclerotic heart disease of native coronary artery without angina pectoris; K59.00 Constipation, unspecified; E78.5 Hyperlipidemia, unspecified; S81.802A Unspecified open wound, left lower leg, initial encounter; S81.801A Unspecified open wound, right lower leg, initial encounter; F10.10 Alcohol abuse, uncomplicated; Y90.9 Presence of alcohol in blood, level not specified; E11.51 Type 2 diabetes mellitus with diabetic peripheral angiopathy without gangrene; E11.40 Type 2 diabetes mellitus with diabetic neuropathy, unspecified; X58.XXXA Exposure to other specified factors, initial encounter; Z88.2 Allergy status to sulfonamides; Z91.09 Other allergy status, other than to drugs and biological substances; Z99.3 Dependence on wheelchair; Z98.891 History of uterine scar from previous surgery; Z79.82 Long term (current) use of aspirin; Z79.4 Long term (current) use of insulin; Z79.899 Other long term (current) drug therapy; Y93.89 Activity, other specified; Y92.89 Other specified places as the place of occurrence of the external cause; Y99.8 Other external cause status; Z68.29 Body mass index [BMI] 29.0-29.9, adult
CPT/HCPCS: 10040

== ENCOUNTER → 2021-03-01 | Outpatient (CLI) | payer OTHER, MEDICARE ==
[~2021-03-01] MED LIST changes: +LIVALO4 MG PO
== END ==
LOC: HYPER 09:45
PROVIDERS: ATTEND Emergency Medicine Emergency Medical Services
DX: I87.333 Chronic venous hypertension (idiopathic) with ulcer and inflammation of bilateral lower extremity (principal); E11.622 Type 2 diabetes mellitus with other skin ulcer; I70.242 Atherosclerosis of native arteries of left leg with ulceration of calf; L89.894 Pressure ulcer of other site, stage 4; L97.222 Non-pressure chronic ulcer of left calf with fat layer exposed; I70.232 Atherosclerosis of native arteries of right leg with ulceration of calf; L97.322 Non-pressure chronic ulcer of left ankle with fat layer exposed; I70.248 Atherosclerosis of native arteries of left leg with ulceration of other part of lower leg; L97.822 Non-pressure chronic ulcer of other part of left lower leg with fat layer exposed; I70.238 Atherosclerosis of native arteries of right leg with ulceration of other part of lower leg; L97.812 Non-pressure chronic ulcer of other part of right lower leg with fat layer exposed; E11.621 Type 2 diabetes mellitus with foot ulcer; I70.234 Atherosclerosis of native arteries of right leg with ulceration of heel and midfoot; L89.613 Pressure ulcer of right heel, stage 3; L97.412 Non-pressure chronic ulcer of right heel and midfoot with fat layer exposed; I70.244 Atherosclerosis of native arteries of left leg with ulceration of heel and midfoot; L89.623 Pressure ulcer of left heel, stage 3; L97.422 Non-pressure chronic ulcer of left heel and midfoot with fat layer exposed; L84 Corns and callosities; R26.2 Difficulty in walking, not elsewhere classified; G90.09 Other idiopathic peripheral autonomic neuropathy; R54 Age-related physical debility; R26.89 Other abnormalities of gait and mobility; E78.5 Hyperlipidemia, unspecified; E11.36 Type 2 diabetes mellitus with diabetic cataract; E11.39 Type 2 diabetes mellitus with other diabetic ophthalmic complication; H42 Glaucoma in diseases classified elsewhere; F41.9 Anxiety disorder, unspecified; Z79.01 Long term (current) use of anticoagulants; Z79.4 Long term (current) use of insulin; Z79.82 Long term (current) use of aspirin; Z79.899 Other long term (current) drug therapy

== ENCOUNTER → 2021-03-22 | Outpatient (CLI) | payer OTHER, MEDICARE | LOC: HYPER 07:54 | PROVIDERS: ATTEND Emergency Medicine | DX: I87.333 Chronic venous hypertension (idiopathic) with ulcer and inflammation of bilateral lower extremity (principal); E11.622 Type 2 diabetes mellitus with other skin ulcer; I70.232 Atherosclerosis of native arteries of right leg with ulceration of calf; L89.894 Pressure ulcer of other site, stage 4; L97.215 Non-pressure chronic ulcer of right calf with muscle involvement without evidence of necrosis; I70.248 Atherosclerosis of native arteries of left leg with ulceration of other part of lower leg; L97.822 Non-pressure chronic ulcer of other part of left lower leg with fat layer exposed; I70.238 Atherosclerosis of native arteries of right leg with ulceration of other part of lower leg; L97.812 Non-pressure chronic ulcer of other part of right lower leg with fat layer exposed; I70.242 Atherosclerosis of native arteries of left leg with ulceration of calf; L97.225 Non-pressure chronic ulcer of left calf with muscle involvement without evidence of necrosis; E11.621 Type 2 diabetes mellitus with foot ulcer; I70.244 Atherosclerosis of native arteries of left leg with ulceration of heel and midfoot; L89.623 Pressure ulcer of left heel, stage 3; L97.421 Non-pressure chronic ulcer of left heel and midfoot limited to breakdown of skin; I70.234 Atherosclerosis of native arteries of right leg with ulceration of heel and midfoot; L89.614 Pressure ulcer of right heel, stage 4; L97.411 Non-pressure chronic ulcer of right heel and midfoot limited to breakdown of skin; E11.43 Type 2 diabetes mellitus with diabetic autonomic (poly)neuropathy; L84 Corns and callosities; R54 Age-related physical debility; R26.2 Difficulty in walking, not elsewhere classified; R26.89 Other abnormalities of gait and mobility; E11.36 Type 2 diabetes mellitus with diabetic cataract; E11.39 Type 2 diabetes mellitus with other diabetic ophthalmic complication; H42 Glaucoma in diseases classified elsewhere; F41.9 Anxiety disorder, unspecified; Z79.01 Long term (current) use of anticoagulants; Z79.4 Long term (current) use of insulin; Z79.899 Other long term (current) drug therapy ==

== ENCOUNTER → 2021-03-29 | Outpatient (CLI) | payer OTHER, MEDICARE | LOC: HYPER 07:53 | PROVIDERS: ATTEND Emergency Medicine Emergency Medical Services | DX: I87.333 Chronic venous hypertension (idiopathic) with ulcer and inflammation of bilateral lower extremity (principal); L89.894 Pressure ulcer of other site, stage 4; I70.242 Atherosclerosis of native arteries of left leg with ulceration of calf; L97.225 Non-pressure chronic ulcer of left calf with muscle involvement without evidence of necrosis; I70.232 Atherosclerosis of native arteries of right leg with ulceration of calf; L97.215 Non-pressure chronic ulcer of right calf with muscle involvement without evidence of necrosis; I70.234 Atherosclerosis of native arteries of right leg with ulceration of heel and midfoot; L89.614 Pressure ulcer of right heel, stage 4; L97.411 Non-pressure chronic ulcer of right heel and midfoot limited to breakdown of skin; L89.623 Pressure ulcer of left heel, stage 3; I70.244 Atherosclerosis of native arteries of left leg with ulceration of heel and midfoot; L97.421 Non-pressure chronic ulcer of left heel and midfoot limited to breakdown of skin; I70.238 Atherosclerosis of native arteries of right leg with ulceration of other part of lower leg; L97.812 Non-pressure chronic ulcer of other part of right lower leg with fat layer exposed; I70.248 Atherosclerosis of native arteries of left leg with ulceration of other part of lower leg; L97.822 Non-pressure chronic ulcer of other part of left lower leg with fat layer exposed; I70.235 Atherosclerosis of native arteries of right leg with ulceration of other part of foot; L97.511 Non-pressure chronic ulcer of other part of right foot limited to breakdown of skin; E11.43 Type 2 diabetes mellitus with diabetic autonomic (poly)neuropathy; R21 Rash and other nonspecific skin eruption; L84 Corns and callosities; R26.89 Other abnormalities of gait and mobility; R54 Age-related physical debility; R26.2 Difficulty in walking, not elsewhere classified; E11.36 Type 2 diabetes mellitus with diabetic cataract; E11.39 Type 2 diabetes mellitus with other diabetic ophthalmic complication; H42 Glaucoma in diseases classified elsewhere; I10 Essential (primary) hypertension; Z79.01 Long term (current) use of anticoagulants; Z79.4 Long term (current) use of insulin; Z79.82 Long term (current) use of aspirin; Z79.899 Other long term (current) drug therapy ==

== ENCOUNTER → 2021-04-05 | Outpatient (CLI) | payer OTHER, MEDICARE | LOC: HYPER 08:21 | PROVIDERS: ATTEND Emergency Medicine | DX: I87.333 Chronic venous hypertension (idiopathic) with ulcer and inflammation of bilateral lower extremity (principal); E11.622 Type 2 diabetes mellitus with other skin ulcer; L89.894 Pressure ulcer of other site, stage 4; L97.215 Non-pressure chronic ulcer of right calf with muscle involvement without evidence of necrosis; L97.225 Non-pressure chronic ulcer of left calf with muscle involvement without evidence of necrosis; I70.232 Atherosclerosis of native arteries of right leg with ulceration of calf; I70.242 Atherosclerosis of native arteries of left leg with ulceration of calf; I70.238 Atherosclerosis of native arteries of right leg with ulceration of other part of lower leg; L97.812 Non-pressure chronic ulcer of other part of right lower leg with fat layer exposed; I70.248 Atherosclerosis of native arteries of left leg with ulceration of other part of lower leg; L97.822 Non-pressure chronic ulcer of other part of left lower leg with fat layer exposed; E11.621 Type 2 diabetes mellitus with foot ulcer; I70.244 Atherosclerosis of native arteries of left leg with ulceration of heel and midfoot; L89.623 Pressure ulcer of left heel, stage 3; L97.421 Non-pressure chronic ulcer of left heel and midfoot limited to breakdown of skin; I70.234 Atherosclerosis of native arteries of right leg with ulceration of heel and midfoot; L89.614 Pressure ulcer of right heel, stage 4; L97.411 Non-pressure chronic ulcer of right heel and midfoot limited to breakdown of skin; I70.245 Atherosclerosis of native arteries of left leg with ulceration of other part of foot; L97.521 Non-pressure chronic ulcer of other part of left foot limited to breakdown of skin; I70.235 Atherosclerosis of native arteries of right leg with ulceration of other part of foot; L97.511 Non-pressure chronic ulcer of other part of right foot limited to breakdown of skin; L84 Corns and callosities; R21 Rash and other nonspecific skin eruption; G90.09 Other idiopathic peripheral autonomic neuropathy; R54 Age-related physical debility; R26.89 Other abnormalities of gait and mobility; R26.2 Difficulty in walking, not elsewhere classified; E11.36 Type 2 diabetes mellitus with diabetic cataract; H26.9 Unspecified cataract; H42 Glaucoma in diseases classified elsewhere; E11.39 Type 2 diabetes mellitus with other diabetic ophthalmic complication; E78.5 Hyperlipidemia, unspecified; Z79.01 Long term (current) use of anticoagulants; Z79.4 Long term (current) use of insulin; Z79.82 Long term (current) use of aspirin; Z79.899 Other long term (current) drug therapy ==

== ENCOUNTER → 2021-04-26 | Outpatient (CLI) | payer OTHER, MEDICARE | LOC: HYPER 08:36 | PROVIDERS: ATTEND Emergency Medicine | DX: I87.333 Chronic venous hypertension (idiopathic) with ulcer and inflammation of bilateral lower extremity (principal); E11.622 Type 2 diabetes mellitus with other skin ulcer; L89.894 Pressure ulcer of other site, stage 4; L97.215 Non-pressure chronic ulcer of right calf with muscle involvement without evidence of necrosis; L97.225 Non-pressure chronic ulcer of left calf with muscle involvement without evidence of necrosis; I70.238 Atherosclerosis of native arteries of right leg with ulceration of other part of lower leg; L97.812 Non-pressure chronic ulcer of other part of right lower leg with fat layer exposed; I70.248 Atherosclerosis of native arteries of left leg with ulceration of other part of lower leg; L97.822 Non-pressure chronic ulcer of other part of left lower leg with fat layer exposed; E11.621 Type 2 diabetes mellitus with foot ulcer; L89.623 Pressure ulcer of left heel, stage 3; L97.421 Non-pressure chronic ulcer of left heel and midfoot limited to breakdown of skin; L89.614 Pressure ulcer of right heel, stage 4; L97.411 Non-pressure chronic ulcer of right heel and midfoot limited to breakdown of skin; I70.245 Atherosclerosis of native arteries of left leg with ulceration of other part of foot; L97.521 Non-pressure chronic ulcer of other part of left foot limited to breakdown of skin; I70.235 Atherosclerosis of native arteries of right leg with ulceration of other part of foot; L97.511 Non-pressure chronic ulcer of other part of right foot limited to breakdown of skin; L84 Corns and callosities; R21 Rash and other nonspecific skin eruption; G90.09 Other idiopathic peripheral autonomic neuropathy; R54 Age-related physical debility; R26.89 Other abnormalities of gait and mobility; R26.2 Difficulty in walking, not elsewhere classified; E11.36 Type 2 diabetes mellitus with diabetic cataract; H26.9 Unspecified cataract; E11.39 Type 2 diabetes mellitus with other diabetic ophthalmic complication; H42 Glaucoma in diseases classified elsewhere; E78.5 Hyperlipidemia, unspecified; Z79.01 Long term (current) use of anticoagulants; Z79.4 Long term (current) use of insulin; Z79.82 Long term (current) use of aspirin ==

== ENCOUNTER → 2021-05-03 | Outpatient (CLI) | payer OTHER, MEDICARE | LOC: HYPER 07:50 | PROVIDERS: ATTEND Emergency Medicine Emergency Medical Services | DX: I87.333 Chronic venous hypertension (idiopathic) with ulcer and inflammation of bilateral lower extremity (principal); I70.238 Atherosclerosis of native arteries of right leg with ulceration of other part of lower leg; L97.812 Non-pressure chronic ulcer of other part of right lower leg with fat layer exposed; I70.248 Atherosclerosis of native arteries of left leg with ulceration of other part of lower leg; L97.822 Non-pressure chronic ulcer of other part of left lower leg with fat layer exposed; L89.894 Pressure ulcer of other site, stage 4; I70.244 Atherosclerosis of native arteries of left leg with ulceration of heel and midfoot; L89.623 Pressure ulcer of left heel, stage 3; L97.421 Non-pressure chronic ulcer of left heel and midfoot limited to breakdown of skin; I70.234 Atherosclerosis of native arteries of right leg with ulceration of heel and midfoot; L89.614 Pressure ulcer of right heel, stage 4; L97.411 Non-pressure chronic ulcer of right heel and midfoot limited to breakdown of skin; I70.242 Atherosclerosis of native arteries of left leg with ulceration of calf; L97.225 Non-pressure chronic ulcer of left calf with muscle involvement without evidence of necrosis; I70.232 Atherosclerosis of native arteries of right leg with ulceration of calf; L97.215 Non-pressure chronic ulcer of right calf with muscle involvement without evidence of necrosis; G90.09 Other idiopathic peripheral autonomic neuropathy; L84 Corns and callosities; R54 Age-related physical debility; R26.89 Other abnormalities of gait and mobility; R26.2 Difficulty in walking, not elsewhere classified; E11.36 Type 2 diabetes mellitus with diabetic cataract; H26.9 Unspecified cataract; E11.39 Type 2 diabetes mellitus with other diabetic ophthalmic complication; H42 Glaucoma in diseases classified elsewhere; E78.5 Hyperlipidemia, unspecified; I10 Essential (primary) hypertension; Z79.4 Long term (current) use of insulin; Z79.01 Long term (current) use of anticoagulants; Z79.82 Long term (current) use of aspirin; Z79.899 Other long term (current) drug therapy ==

== ENCOUNTER → 2021-05-17 | Outpatient (CLI) | payer OTHER, MEDICARE | LOC: HYPER 07:38 | PROVIDERS: ATTEND Emergency Medicine Emergency Medical Services | DX: I87.333 Chronic venous hypertension (idiopathic) with ulcer and inflammation of bilateral lower extremity (principal); I70.238 Atherosclerosis of native arteries of right leg with ulceration of other part of lower leg; L97.812 Non-pressure chronic ulcer of other part of right lower leg with fat layer exposed; I70.248 Atherosclerosis of native arteries of left leg with ulceration of other part of lower leg; L97.822 Non-pressure chronic ulcer of other part of left lower leg with fat layer exposed; L89.894 Pressure ulcer of other site, stage 4; I70.244 Atherosclerosis of native arteries of left leg with ulceration of heel and midfoot; L89.623 Pressure ulcer of left heel, stage 3; L97.421 Non-pressure chronic ulcer of left heel and midfoot limited to breakdown of skin; I70.234 Atherosclerosis of native arteries of right leg with ulceration of heel and midfoot; L89.614 Pressure ulcer of right heel, stage 4; L97.411 Non-pressure chronic ulcer of right heel and midfoot limited to breakdown of skin; I70.242 Atherosclerosis of native arteries of left leg with ulceration of calf; L97.225 Non-pressure chronic ulcer of left calf with muscle involvement without evidence of necrosis; I70.232 Atherosclerosis of native arteries of right leg with ulceration of calf; L97.215 Non-pressure chronic ulcer of right calf with muscle involvement without evidence of necrosis; G90.09 Other idiopathic peripheral autonomic neuropathy; L84 Corns and callosities; R54 Age-related physical debility; R26.89 Other abnormalities of gait and mobility; R26.2 Difficulty in walking, not elsewhere classified; E11.36 Type 2 diabetes mellitus with diabetic cataract; H26.9 Unspecified cataract; E11.39 Type 2 diabetes mellitus with other diabetic ophthalmic complication; H42 Glaucoma in diseases classified elsewhere; E78.5 Hyperlipidemia, unspecified; I10 Essential (primary) hypertension; F41.9 Anxiety disorder, unspecified; Z79.4 Long term (current) use of insulin; Z79.01 Long term (current) use of anticoagulants; Z79.82 Long term (current) use of aspirin ==

== ENCOUNTER → 2021-05-31 | Outpatient (CLI) | payer OTHER, MEDICARE | LOC: HYPER 07:56 | PROVIDERS: ATTEND Emergency Medicine Emergency Medical Services | DX: I87.333 Chronic venous hypertension (idiopathic) with ulcer and inflammation of bilateral lower extremity (principal); E11.622 Type 2 diabetes mellitus with other skin ulcer; I70.242 Atherosclerosis of native arteries of left leg with ulceration of calf; L89.894 Pressure ulcer of other site, stage 4; L97.225 Non-pressure chronic ulcer of left calf with muscle involvement without evidence of necrosis; I70.232 Atherosclerosis of native arteries of right leg with ulceration of calf; L97.215 Non-pressure chronic ulcer of right calf with muscle involvement without evidence of necrosis; I70.248 Atherosclerosis of native arteries of left leg with ulceration of other part of lower leg; L97.822 Non-pressure chronic ulcer of other part of left lower leg with fat layer exposed; I70.238 Atherosclerosis of native arteries of right leg with ulceration of other part of lower leg; L97.812 Non-pressure chronic ulcer of other part of right lower leg with fat layer exposed; E11.621 Type 2 diabetes mellitus with foot ulcer; I70.244 Atherosclerosis of native arteries of left leg with ulceration of heel and midfoot; L89.623 Pressure ulcer of left heel, stage 3; L97.421 Non-pressure chronic ulcer of left heel and midfoot limited to breakdown of skin; I70.234 Atherosclerosis of native arteries of right leg with ulceration of heel and midfoot; L89.614 Pressure ulcer of right heel, stage 4; L97.411 Non-pressure chronic ulcer of right heel and midfoot limited to breakdown of skin; E11.43 Type 2 diabetes mellitus with diabetic autonomic (poly)neuropathy; I70.245 Atherosclerosis of native arteries of left leg with ulceration of other part of foot; L97.521 Non-pressure chronic ulcer of other part of left foot limited to breakdown of skin; I70.235 Atherosclerosis of native arteries of right leg with ulceration of other part of foot; L97.511 Non-pressure chronic ulcer of other part of right foot limited to breakdown of skin; E11.51 Type 2 diabetes mellitus with diabetic peripheral angiopathy without gangrene; L84 Corns and callosities; R26.89 Other abnormalities of gait and mobility; R54 Age-related physical debility; E11.36 Type 2 diabetes mellitus with diabetic cataract; H26.9 Unspecified cataract; E11.39 Type 2 diabetes mellitus with other diabetic ophthalmic complication; H42 Glaucoma in diseases classified elsewhere; Z79.01 Long term (current) use of anticoagulants; Z79.4 Long term (current) use of insulin; Z79.82 Long term (current) use of aspirin; Z79.899 Other long term (current) drug therapy ==

== ENCOUNTER → 2021-06-21 | Outpatient (CLI) | payer OTHER, MEDICARE | LOC: HYPER 08:10 | PROVIDERS: ATTEND Emergency Medicine | DX: I87.333 Chronic venous hypertension (idiopathic) with ulcer and inflammation of bilateral lower extremity (principal); E11.622 Type 2 diabetes mellitus with other skin ulcer; I70.242 Atherosclerosis of native arteries of left leg with ulceration of calf; L89.894 Pressure ulcer of other site, stage 4; L97.225 Non-pressure chronic ulcer of left calf with muscle involvement without evidence of necrosis; I70.232 Atherosclerosis of native arteries of right leg with ulceration of calf; L97.215 Non-pressure chronic ulcer of right calf with muscle involvement without evidence of necrosis; E11.621 Type 2 diabetes mellitus with foot ulcer; I70.244 Atherosclerosis of native arteries of left leg with ulceration of heel and midfoot; L89.623 Pressure ulcer of left heel, stage 3; L97.421 Non-pressure chronic ulcer of left heel and midfoot limited to breakdown of skin; I70.234 Atherosclerosis of native arteries of right leg with ulceration of heel and midfoot; L89.614 Pressure ulcer of right heel, stage 4; L97.411 Non-pressure chronic ulcer of right heel and midfoot limited to breakdown of skin; I70.245 Atherosclerosis of native arteries of left leg with ulceration of other part of foot; L97.521 Non-pressure chronic ulcer of other part of left foot limited to breakdown of skin; I70.235 Atherosclerosis of native arteries of right leg with ulceration of other part of foot; L97.511 Non-pressure chronic ulcer of other part of right foot limited to breakdown of skin; L84 Corns and callosities; R54 Age-related physical debility; R26.89 Other abnormalities of gait and mobility; R26.2 Difficulty in walking, not elsewhere classified; E11.39 Type 2 diabetes mellitus with other diabetic ophthalmic complication; H42 Glaucoma in diseases classified elsewhere; E78.5 Hyperlipidemia, unspecified; I10 Essential (primary) hypertension; Z79.01 Long term (current) use of anticoagulants; Z79.4 Long term (current) use of insulin; Z79.82 Long term (current) use of aspirin; Z79.899 Other long term (current) drug therapy ==

== ENCOUNTER → 2021-07-12 | Outpatient (CLI) | payer OTHER, MEDICARE | LOC: HYPER 07-05 12:42 | PROVIDERS: ATTEND Emergency Medicine Emergency Medical Services | DX: I87.333 Chronic venous hypertension (idiopathic) with ulcer and inflammation of bilateral lower extremity (principal); E11.622 Type 2 diabetes mellitus with other skin ulcer; I70.232 Atherosclerosis of native arteries of right leg with ulceration of calf; L89.894 Pressure ulcer of other site, stage 4; L97.325 Non-pressure chronic ulcer of left ankle with muscle involvement without evidence of necrosis; I70.242 Atherosclerosis of native arteries of left leg with ulceration of calf; L97.225 Non-pressure chronic ulcer of left calf with muscle involvement without evidence of necrosis; I70.248 Atherosclerosis of native arteries of left leg with ulceration of other part of lower leg; L97.822 Non-pressure chronic ulcer of other part of left lower leg with fat layer exposed; I70.238 Atherosclerosis of native arteries of right leg with ulceration of other part of lower leg; L97.812 Non-pressure chronic ulcer of other part of right lower leg with fat layer exposed; E11.621 Type 2 diabetes mellitus with foot ulcer; I70.234 Atherosclerosis of native arteries of right leg with ulceration of heel and midfoot; L89.614 Pressure ulcer of right heel, stage 4; L97.411 Non-pressure chronic ulcer of right heel and midfoot limited to breakdown of skin; I70.244 Atherosclerosis of native arteries of left leg with ulceration of heel and midfoot; L89.623 Pressure ulcer of left heel, stage 3; L97.421 Non-pressure chronic ulcer of left heel and midfoot limited to breakdown of skin; I70.245 Atherosclerosis of native arteries of left leg with ulceration of other part of foot; L97.521 Non-pressure chronic ulcer of other part of left foot limited to breakdown of skin; I70.235 Atherosclerosis of native arteries of right leg with ulceration of other part of foot; L97.511 Non-pressure chronic ulcer of other part of right foot limited to breakdown of skin; E11.43 Type 2 diabetes mellitus with diabetic autonomic (poly)neuropathy; L84 Corns and callosities; R54 Age-related physical debility; R26.89 Other abnormalities of gait and mobility; E78.5 Hyperlipidemia, unspecified; E11.39 Type 2 diabetes mellitus with other diabetic ophthalmic complication; H42 Glaucoma in diseases classified elsewhere; E11.36 Type 2 diabetes mellitus with diabetic cataract; H26.9 Unspecified cataract; F41.9 Anxiety disorder, unspecified; Z79.01 Long term (current) use of anticoagulants; Z79.4 Long term (current) use of insulin; Z79.82 Long term (current) use of aspirin; Z79.899 Other long term (current) drug therapy ==

== ENCOUNTER → 2021-07-26 | Outpatient (CLI) | payer OTHER, MEDICARE | LOC: HYPER 09:38 | PROVIDERS: ATTEND Emergency Medicine Emergency Medical Services | DX: I87.333 Chronic venous hypertension (idiopathic) with ulcer and inflammation of bilateral lower extremity (principal); E11.621 Type 2 diabetes mellitus with foot ulcer; I70.242 Atherosclerosis of native arteries of left leg with ulceration of calf; L89.894 Pressure ulcer of other site, stage 4; L97.225 Non-pressure chronic ulcer of left calf with muscle involvement without evidence of necrosis; I70.232 Atherosclerosis of native arteries of right leg with ulceration of calf; L97.215 Non-pressure chronic ulcer of right calf with muscle involvement without evidence of necrosis; I70.234 Atherosclerosis of native arteries of right leg with ulceration of heel and midfoot; L89.614 Pressure ulcer of right heel, stage 4; L97.411 Non-pressure chronic ulcer of right heel and midfoot limited to breakdown of skin; L89.623 Pressure ulcer of left heel, stage 3; I70.244 Atherosclerosis of native arteries of left leg with ulceration of heel and midfoot; L97.421 Non-pressure chronic ulcer of left heel and midfoot limited to breakdown of skin; I70.245 Atherosclerosis of native arteries of left leg with ulceration of other part of foot; L97.521 Non-pressure chronic ulcer of other part of left foot limited to breakdown of skin; I70.235 Atherosclerosis of native arteries of right leg with ulceration of other part of foot; L97.511 Non-pressure chronic ulcer of other part of right foot limited to breakdown of skin; E11.622 Type 2 diabetes mellitus with other skin ulcer; I70.248 Atherosclerosis of native arteries of left leg with ulceration of other part of lower leg; L97.822 Non-pressure chronic ulcer of other part of left lower leg with fat layer exposed; I70.238 Atherosclerosis of native arteries of right leg with ulceration of other part of lower leg; L97.812 Non-pressure chronic ulcer of other part of right lower leg with fat layer exposed; E11.43 Type 2 diabetes mellitus with diabetic autonomic (poly)neuropathy; E11.51 Type 2 diabetes mellitus with diabetic peripheral angiopathy without gangrene; L84 Corns and callosities; R54 Age-related physical debility; R26.89 Other abnormalities of gait and mobility; R26.2 Difficulty in walking, not elsewhere classified; E11.36 Type 2 diabetes mellitus with diabetic cataract; H26.9 Unspecified cataract; E11.39 Type 2 diabetes mellitus with other diabetic ophthalmic complication; H42 Glaucoma in diseases classified elsewhere; I10 Essential (primary) hypertension; Z79.01 Long term (current) use of anticoagulants; Z79.4 Long term (current) use of insulin; Z79.82 Long term (current) use of aspirin; Z79.899 Other long term (current) drug therapy ==

== ENCOUNTER → 2021-08-16 | Outpatient (CLI) | payer OTHER, MEDICARE | LOC: HYPER 09:45 | PROVIDERS: ATTEND Emergency Medicine | DX: I87.333 Chronic venous hypertension (idiopathic) with ulcer and inflammation of bilateral lower extremity (principal); E11.621 Type 2 diabetes mellitus with foot ulcer; L89.614 Pressure ulcer of right heel, stage 4; I70.234 Atherosclerosis of native arteries of right leg with ulceration of heel and midfoot; L97.411 Non-pressure chronic ulcer of right heel and midfoot limited to breakdown of skin; I70.244 Atherosclerosis of native arteries of left leg with ulceration of heel and midfoot; I70.245 Atherosclerosis of native arteries of left leg with ulceration of other part of foot; I70.235 Atherosclerosis of native arteries of right leg with ulceration of other part of foot; L97.521 Non-pressure chronic ulcer of other part of left foot limited to breakdown of skin; L97.511 Non-pressure chronic ulcer of other part of right foot limited to breakdown of skin; L89.623 Pressure ulcer of left heel, stage 3; L97.421 Non-pressure chronic ulcer of left heel and midfoot limited to breakdown of skin; E11.622 Type 2 diabetes mellitus with other skin ulcer; I70.232 Atherosclerosis of native arteries of right leg with ulceration of calf; L89.894 Pressure ulcer of other site, stage 4; L97.215 Non-pressure chronic ulcer of right calf with muscle involvement without evidence of necrosis; I70.242 Atherosclerosis of native arteries of left leg with ulceration of calf; L97.225 Non-pressure chronic ulcer of left calf with muscle involvement without evidence of necrosis; I70.248 Atherosclerosis of native arteries of left leg with ulceration of other part of lower leg; L97.822 Non-pressure chronic ulcer of other part of left lower leg with fat layer exposed; I70.238 Atherosclerosis of native arteries of right leg with ulceration of other part of lower leg; L97.812 Non-pressure chronic ulcer of other part of right lower leg with fat layer exposed; E11.43 Type 2 diabetes mellitus with diabetic autonomic (poly)neuropathy; E11.51 Type 2 diabetes mellitus with diabetic peripheral angiopathy without gangrene; L84 Corns and callosities; R54 Age-related physical debility; R26.89 Other abnormalities of gait and mobility; R26.2 Difficulty in walking, not elsewhere classified; E11.36 Type 2 diabetes mellitus with diabetic cataract; H26.9 Unspecified cataract; E11.39 Type 2 diabetes mellitus with other diabetic ophthalmic complication; H42 Glaucoma in diseases classified elsewhere; E78.5 Hyperlipidemia, unspecified; F41.9 Anxiety disorder, unspecified; Z79.01 Long term (current) use of anticoagulants; Z79.4 Long term (current) use of insulin; Z79.899 Other long term (current) drug therapy ==

== ENCOUNTER → 2021-08-30 | Outpatient (CLI) | payer OTHER, MEDICARE | LOC: HYPER 09:48 | PROVIDERS: ATTEND Emergency Medicine Emergency Medical Services | DX: I87.333 Chronic venous hypertension (idiopathic) with ulcer and inflammation of bilateral lower extremity (principal); E11.622 Type 2 diabetes mellitus with other skin ulcer; I70.242 Atherosclerosis of native arteries of left leg with ulceration of calf; L89.894 Pressure ulcer of other site, stage 4; L97.225 Non-pressure chronic ulcer of left calf with muscle involvement without evidence of necrosis; I70.238 Atherosclerosis of native arteries of right leg with ulceration of other part of lower leg; L97.812 Non-pressure chronic ulcer of other part of right lower leg with fat layer exposed; I70.248 Atherosclerosis of native arteries of left leg with ulceration of other part of lower leg; L97.822 Non-pressure chronic ulcer of other part of left lower leg with fat layer exposed; I70.232 Atherosclerosis of native arteries of right leg with ulceration of calf; L97.215 Non-pressure chronic ulcer of right calf with muscle involvement without evidence of necrosis; E11.621 Type 2 diabetes mellitus with foot ulcer; I70.245 Atherosclerosis of native arteries of left leg with ulceration of other part of foot; I70.234 Atherosclerosis of native arteries of right leg with ulceration of heel and midfoot; L89.613 Pressure ulcer of right heel, stage 3; L97.411 Non-pressure chronic ulcer of right heel and midfoot limited to breakdown of skin; L97.521 Non-pressure chronic ulcer of other part of left foot limited to breakdown of skin; I70.244 Atherosclerosis of native arteries of left leg with ulceration of heel and midfoot; L89.623 Pressure ulcer of left heel, stage 3; L97.421 Non-pressure chronic ulcer of left heel and midfoot limited to breakdown of skin; I70.235 Atherosclerosis of native arteries of right leg with ulceration of other part of foot; L97.511 Non-pressure chronic ulcer of other part of right foot limited to breakdown of skin; E11.42 Type 2 diabetes mellitus with diabetic polyneuropathy; L84 Corns and callosities; E11.36 Type 2 diabetes mellitus with diabetic cataract; H26.9 Unspecified cataract; E11.39 Type 2 diabetes mellitus with other diabetic ophthalmic complication; H42 Glaucoma in diseases classified elsewhere; E78.5 Hyperlipidemia, unspecified; R54 Age-related physical debility; R26.89 Other abnormalities of gait and mobility; I10 Essential (primary) hypertension; R26.2 Difficulty in walking, not elsewhere classified; F41.9 Anxiety disorder, unspecified; Z79.01 Long term (current) use of anticoagulants; Z79.4 Long term (current) use of insulin; Z79.82 Long term (current) use of aspirin; Z79.899 Other long term (current) drug therapy ==

== ENCOUNTER → 2021-09-20 | Outpatient (CLI) | payer OTHER, MEDICARE | LOC: HYPER 09:24 | PROVIDERS: ATTEND Emergency Medicine Emergency Medical Services | DX: I87.333 Chronic venous hypertension (idiopathic) with ulcer and inflammation of bilateral lower extremity (principal); E11.622 Type 2 diabetes mellitus with other skin ulcer; I70.248 Atherosclerosis of native arteries of left leg with ulceration of other part of lower leg; L97.822 Non-pressure chronic ulcer of other part of left lower leg with fat layer exposed; I70.238 Atherosclerosis of native arteries of right leg with ulceration of other part of lower leg; L97.812 Non-pressure chronic ulcer of other part of right lower leg with fat layer exposed; I70.242 Atherosclerosis of native arteries of left leg with ulceration of calf; L89.894 Pressure ulcer of other site, stage 4; L97.221 Non-pressure chronic ulcer of left calf limited to breakdown of skin; E11.621 Type 2 diabetes mellitus with foot ulcer; I70.245 Atherosclerosis of native arteries of left leg with ulceration of other part of foot; L97.521 Non-pressure chronic ulcer of other part of left foot limited to breakdown of skin; I70.235 Atherosclerosis of native arteries of right leg with ulceration of other part of foot; L97.511 Non-pressure chronic ulcer of other part of right foot limited to breakdown of skin; I70.244 Atherosclerosis of native arteries of left leg with ulceration of heel and midfoot; L89.623 Pressure ulcer of left heel, stage 3; L97.421 Non-pressure chronic ulcer of left heel and midfoot limited to breakdown of skin; I70.234 Atherosclerosis of native arteries of right leg with ulceration of heel and midfoot; L89.613 Pressure ulcer of right heel, stage 3; L97.411 Non-pressure chronic ulcer of right heel and midfoot limited to breakdown of skin; E11.36 Type 2 diabetes mellitus with diabetic cataract; E11.43 Type 2 diabetes mellitus with diabetic autonomic (poly)neuropathy; H26.9 Unspecified cataract; E78.5 Hyperlipidemia, unspecified; R26.2 Difficulty in walking, not elsewhere classified; R54 Age-related physical debility; R26.89 Other abnormalities of gait and mobility; F41.9 Anxiety disorder, unspecified; Z79.01 Long term (current) use of anticoagulants; Z79.4 Long term (current) use of insulin; Z79.82 Long term (current) use of aspirin; Z79.899 Other long term (current) drug therapy ==

== ENCOUNTER → 2021-10-04 | Outpatient (CLI) | payer OTHER, MEDICARE | LOC: HYPER 09:28 | PROVIDERS: ATTEND Emergency Medicine | DX: I87.333 Chronic venous hypertension (idiopathic) with ulcer and inflammation of bilateral lower extremity (principal); I70.232 Atherosclerosis of native arteries of right leg with ulceration of calf; L89.894 Pressure ulcer of other site, stage 4; L97.212 Non-pressure chronic ulcer of right calf with fat layer exposed; I70.234 Atherosclerosis of native arteries of right leg with ulceration of heel and midfoot; L89.613 Pressure ulcer of right heel, stage 3; L97.411 Non-pressure chronic ulcer of right heel and midfoot limited to breakdown of skin; I70.244 Atherosclerosis of native arteries of left leg with ulceration of heel and midfoot; L89.623 Pressure ulcer of left heel, stage 3; L97.421 Non-pressure chronic ulcer of left heel and midfoot limited to breakdown of skin; I70.245 Atherosclerosis of native arteries of left leg with ulceration of other part of foot; L97.521 Non-pressure chronic ulcer of other part of left foot limited to breakdown of skin; I70.235 Atherosclerosis of native arteries of right leg with ulceration of other part of foot; L97.511 Non-pressure chronic ulcer of other part of right foot limited to breakdown of skin; I70.248 Atherosclerosis of native arteries of left leg with ulceration of other part of lower leg; L97.822 Non-pressure chronic ulcer of other part of left lower leg with fat layer exposed; I70.238 Atherosclerosis of native arteries of right leg with ulceration of other part of lower leg; L97.812 Non-pressure chronic ulcer of other part of right lower leg with fat layer exposed; E11.43 Type 2 diabetes mellitus with diabetic autonomic (poly)neuropathy; R54 Age-related physical debility; R26.89 Other abnormalities of gait and mobility; R26.2 Difficulty in walking, not elsewhere classified; E11.36 Type 2 diabetes mellitus with diabetic cataract; H26.9 Unspecified cataract; E11.39 Type 2 diabetes mellitus with other diabetic ophthalmic complication; H42 Glaucoma in diseases classified elsewhere; E78.5 Hyperlipidemia, unspecified; Z79.01 Long term (current) use of anticoagulants; Z79.4 Long term (current) use of insulin; Z79.82 Long term (current) use of aspirin; Z79.899 Other long term (current) drug therapy ==

== ENCOUNTER → 2021-10-25 | Outpatient (CLI) | payer OTHER, MEDICARE | LOC: HYPER 09:33 | PROVIDERS: ATTEND Emergency Medicine | DX: E11.622 Type 2 diabetes mellitus with other skin ulcer (principal); I87.333 Chronic venous hypertension (idiopathic) with ulcer and inflammation of bilateral lower extremity; L89.894 Pressure ulcer of other site, stage 4; L97.225 Non-pressure chronic ulcer of left calf with muscle involvement without evidence of necrosis; L97.215 Non-pressure chronic ulcer of right calf with muscle involvement without evidence of necrosis; L89.613 Pressure ulcer of right heel, stage 3; L97.411 Non-pressure chronic ulcer of right heel and midfoot limited to breakdown of skin; I70.248 Atherosclerosis of native arteries of left leg with ulceration of other part of lower leg; L97.822 Non-pressure chronic ulcer of other part of left lower leg with fat layer exposed; I70.238 Atherosclerosis of native arteries of right leg with ulceration of other part of lower leg; L97.812 Non-pressure chronic ulcer of other part of right lower leg with fat layer exposed; E11.621 Type 2 diabetes mellitus with foot ulcer; L89.623 Pressure ulcer of left heel, stage 3; L97.421 Non-pressure chronic ulcer of left heel and midfoot limited to breakdown of skin; I70.245 Atherosclerosis of native arteries of left leg with ulceration of other part of foot; L97.521 Non-pressure chronic ulcer of other part of left foot limited to breakdown of skin; I70.235 Atherosclerosis of native arteries of right leg with ulceration of other part of foot; L97.511 Non-pressure chronic ulcer of other part of right foot limited to breakdown of skin; L84 Corns and callosities; E11.43 Type 2 diabetes mellitus with diabetic autonomic (poly)neuropathy; R54 Age-related physical debility; R26.89 Other abnormalities of gait and mobility; R26.2 Difficulty in walking, not elsewhere classified; E11.36 Type 2 diabetes mellitus with diabetic cataract; H26.9 Unspecified cataract; E11.39 Type 2 diabetes mellitus with other diabetic ophthalmic complication; H42 Glaucoma in diseases classified elsewhere; E78.5 Hyperlipidemia, unspecified; Z79.01 Long term (current) use of anticoagulants; Z79.4 Long term (current) use of insulin; Z79.82 Long term (current) use of aspirin ==